=== PATIENT | female | born 1960 | race Caucasian/White ===

== ENCOUNTER 2016-12-18 20:07 | Emergency (ER) | payer MEDICARE, MEDICAID ==
--- NOTE | 2016-12-18 21:20 | ER Document Report ---
ED Medical Screen (RME) - General Stated Complaint: BACK PAIN Mode of Arrival: Wheelchair Information source: Patient Notes: Patient complains of low back pain that radiates down to left foot. Patient had fluoroscopy procedure in early October to treat her back pain. Patient states low back pain has worsened over the past 2 weeks. Patient states that she's been having increased pain and it causes her leg to buckle out from underneath her. Patient denies any urinary symptoms. Patient reports pain in the groin area as well. No injury hx: Hypothyroid, bowel obstruction, spinal fusion L L4-L5, L5-S1 I have greeted and performed a rapid initial assessment of this patient. A comprehensive ED assessment and evaluation of the patient, analysis of test results and completion of the medical decision making process will be conducted by additional ED providers. TRAVEL OUTSIDE OF THE [place] IN LAST 30 DAYS: No - Related Data Allergies/Adverse Reactions: No Known Allergies Allergy (Verified 07/03/16 12:09) Past Medical History Endocrine Medical History: Reports: Hx Hypothyroidism GI Medical History: Reports: Hx Gastroesophageal Reflux Disease Musculoskeltal Medical History: Reports Hx Arthritis, Reports Hx Musculoskeletal Deformity, Reports Hx Musculoskeletal Trauma Past Surgical History: Reports: Hx Appendectomy, Hx Bowel Surgery - Hx bowel obstruction, Hx Breast Surgery - Breast augmentation/ Breast reduction, Hx Section, Hx Hysterectomy, Hx Orthopedic Surgery - L & R rotator cuff. L & R foot dorsal repair - Immunizations Hx Diphtheria, Pertussis, Tetanus Vaccination: Yes Physical Exam - Vital signs Vitals: Resp 16 12/18/16 20:14 - Back Back: Tender - Left lower lumbar Course - Vital Signs Vital signs: Temp Pulse Resp BP Pulse Ox 98.3 F 16 12/18/16 20:17 12/18/16 20:14
== END 2016-12-19 01:40 | disposition left against medical advice (07) ==
LOC: ER 20:07
DX: M54.5 Low back pain (principal); R10.30 Lower abdominal pain, unspecified; Z98.1 Arthrodesis status; Z53.20 Procedure and treatment not carried out because of patient's decision for unspecified reasons
CPT/HCPCS: 99281

== ENCOUNTER 2017-04-24 21:20 | Emergency (ER) | payer MEDICARE, MEDICAID ==
[2017-04-24 22:12] LABS: ABSOLUTE LYMPHOCYTES (AUTO) 3.3 10^3/uL (0.5-4.7); ABSOLUTE MONOCYTES (AUTO) 0.7 10^3/uL (0.1-1.4); ABSOLUTE NEUT (AUTO) 4.4 10^3/uL (1.7-8.2); BASOPHILS % (AUTO) 0.4 % (0-2); EOSINOPHILS % (AUTO) 0.4 % (0-6); HEMATOCRIT 44.9 % (36.0-47.0); HEMOGLOBIN 14.8 g/dL (12.0-15.5); HGB HCT DIFFERENCE -0.5; MEAN CORPUSCULAR HEMOGLOBIN 28.9 pg (27.0-33.4); MEAN CORPUSCULAR HGB CONC 32.9 g/dL (32.0-36.0); MEAN CORPUSCULAR VOLUME 88 fl (80-97); MONOCYTES % (AUTO) 8.6 % (3-13); RED BLOOD COUNT 5.11 10^6/uL (3.72-5.28); RED CELL DISTRIBUTION WIDTH 12.6 % (11.5-14.0); SEGMENTED NEUTROPHILS % (AUTO) 51.6 % (42-78); WHITE BLOOD COUNT 8.5 10^3/uL (4.0-10.5)
[2017-04-24 22:22] LABS: ALANINE AMINOTRANSFERASE 27 U/L (9-52); ALBUMIN 4.1 g/dL (3.5-5.0); ALKALINE PHOSPHATASE 88 U/L (38-126); ANION GAP 13 (5-19); ASPARTATE AMINO TRANSFERASE 18 U/L (14-36); BILIRUBIN,DIRECT 0.3 mg/dL (0.0-0.4); BILIRUBIN,TOTAL 0.3 mg/dL (0.2-1.3); BLOOD UREA NITROGEN 13 mg/dL (7-20); CALCIUM 8.9 mg/dL (8.4-10.2); CARBON DIOXIDE 20 mmol/L (22-30); CHLORIDE 108 mmol/L (98-107); CREATININE RESULT 0.72 mg/dL (0.52-1.25); GLUCOSE 107 mg/dL (75-110); TOTAL PROTEIN 7.2 g/dL (6.3-8.2)
--- NOTE | 2017-04-24 22:52 | ER Document Report ---
ED GI/ - General Chief Complaint: Post Surgical Pain Stated Complaint: BLEEDING FROM SURGICAL SITE Time Seen by Provider: 04/24/17 22:13 Mode of Arrival: Ambulatory Information source: Patient Notes: 57 yo female presents to ed for rectal bleeding from a hemorrhoidectomy on Thursday. TRAVEL OUTSIDE OF THE [place] IN LAST 30 DAYS: No - HPI Patient complains to provider of: Other - bleeding from site of hemorrhoidectomy Onset: Other - thursday Timing/Duration: Persistent Quality of pain: Burning Severity at maximum: Severe Severity in ED: Moderate Pain Level: 2 Location: Rectal Vaginal bleeding (Compared to normal period): None Associated symptoms: Other - bleeding from site of hemorroidectomy. Exacerbated by: Denies Relieved by: Denies Similar symptoms previously: Yes Recently seen / treated by doctor: Yes - Related Data Allergies/Adverse Reactions: No Known Allergies Allergy (Verified 12/18/16 21:17) Past Medical History - General Information source: Patient - Social History Smoking Status: Former Smoker Cigarette use (# per day): No Chew tobacco use (# tins/day): No Smoking Education Provided: No Frequency of alcohol use: Social Drug Abuse: None Lives with: Alone Family History: Reviewed & Not Pertinent, Arthritis, CAD, COPD, CVA, Hyperlipidemia, Hypertension, Malignancy Patient has suicidal ideation: No Patient has homicidal ideation: No - Past Medical History Cardiac Medical History: Reports: None Pulmonary Medical History: Reports: None EENT Medical History: Reports: None Neurological Medical History: Reports: None Endocrine Medical History: Reports: Hx Hypothyroidism Renal/ Medical History: Reports: None Malignancy Medical History: Reports: None GI Medical History: Reports: Hx Gastroesophageal Reflux Disease Musculoskeltal Medical History: Reports Hx Arthritis, Reports Hx Musculoskeletal Deformity, Reports Hx Musculoskeletal Trauma Skin Medical History: Reports None Psychiatric Medical History: Reports: Hx Anxiety, Hx Depression, Hx Post Traumatic Stress Disorder Traumatic Medical History: Reports: Hx Fractures, Hx Spine Fracture, Hx Traumatic Brain Injury Infectious Medical History: Reports: None Past Surgical History: Reports: Hx Appendectomy, Hx Bowel Surgery - Hx bowel obstruction, Hx Breast Surgery - Breast augmentation/ Breast reduction, Hx Section, Hx Hysterectomy, Hx Orthopedic Surgery - L & R rotator cuff. L & R foot dorsal repair - Immunizations Hx Diphtheria, Pertussis, Tetanus Vaccination: Yes Hx Pneumococcal Vaccination: 05/29/14 Review of Systems - Review of Systems Constitutional: No symptoms reported EENT: No symptoms reported Cardiovascular: No symptoms reported Respiratory: No symptoms reported Gastrointestinal: Other - bleeding from hemorrhoidectomy done thursday Genitourinary: No symptoms reported Female Genitourinary: No symptoms reported Musculoskeletal: No symptoms reported Skin: No symptoms reported Hematologic/Lymphatic: No symptoms reported Neurological/Psychological: No symptoms reported -: Yes All other systems reviewed and negative Physical Exam - Vital signs Vitals: Temp Pulse Resp BP Pulse Ox 98.7 F 93 18 120/70 98 04/24/17 21:26 04/24/17 21:26 04/24/17 21:26 04/24/17 21:26 04/24/17 21:26 Interpretation: Normal - General General appearance: Appears well, Alert - HEENT Head: Normocephalic, Atraumatic Eyes: Normal Pupils: PERRL - Respiratory Respiratory status: No respiratory distress Chest status: Nontender Breath sounds: Normal Chest palpation: Normal - Cardiovascular Rhythm: Regular Heart sounds: Normal auscultation Murmur: No - Abdominal Inspection: Normal Distension: No distension Bowel sounds: Normal Tenderness: Nontender Organomegaly: No organomegaly - Rectal Tenderness: Yes Notes: There is no bleeding from hemorrhoidectomy site at this time. There is no signs of infection or inflammation. - Back Back: Normal, Nontender - Extremities General upper extremity: Normal inspection, Nontender, Normal color, Normal ROM , Normal temperature General lower extremity: Normal inspection, Nontender, Normal color, Normal ROM , Normal temperature, Normal weight bearing. No: Gabby's sign - Neurological Neuro grossly intact: Yes Cognition: Normal Orientation: AAOx4 Catlin Coma Scale Eye Opening: Spontaneous Catlin Coma Scale Verbal: Oriented Mariah Coma Scale Motor: Obeys Commands Mariah Coma Scale Total: 15 Speech: Normal Motor strength normal: LUE, RUE, LLE, RLE Sensory: Normal - Psychological Associated symptoms: Normal affect, Normal mood - Skin Skin Temperature: Warm Skin Moisture: Dry Skin Color: Normal Course - Vital Signs Vital signs: Temp Pulse Resp BP Pulse Ox 98.6 F 90 18 126/84 H 98 04/24/17 22:49 04/24/17 22:49 04/24/17 22:49 04/24/17 22:49 04/24/17 22:49 - Laboratory Result Diagrams: 04/24/17 21:40 04/24/17 21:40 Laboratory results interpreted by me: 04/24/17 21:40 Chloride 108 H Carbon Dioxide 20 L Discharge - Discharge Clinical Impression: post op concern hemorrhoidectomy, no bleeding at this time Condition: Stable Disposition: HOME, SELF-CARE Additional Instructions: Hemorrhoids You have hemorrhoids. These are formed by enlargement of veins around the anus. The cause is increased pressure in the veins, from or straining at bowel movements. Hemorrhoids often cause itching and bleeding with bowel movements. When a hemorrhoid becomes clotted, severe pain and swelling result. Warm sitz-baths may also decrease pain, swelling, and itching. Eat a high- fiber diet. Stool softeners such as Metamucil will help. Keep the area very clean. Medicated cleansing pads (such as Tucks) are useful after bowel movements. A hose-mounted shower unit (like a shower massager at low water pressure) can be used to clean around tender hemorrhoid tags. You should call the doctor or return if you develop fever, increasing pain , or an enlarging mass around the anus, or if you simply fail to improve with treatment. Epsom Salt Soaks Soak the wound area in a container of warm epsom salt water. If you can't get the wound area into a bucket or alvarado, use a folded towel soaked in the epsom salt solution and apply to the area. Use clean hot tap water (about the temperature of a very warm bath), mixing in about one (1) teaspoon for every pint of water. Two gallon --> 16 teaspoons Epsom Salts One gallon --> 8 teaspoons Epsom Salts Two quarts --> 4 teaspoons Epsom Salts One quart --> 2 teaspoons Epsom Salts Soak the wound for about 20 minutes while gently moving it around in the water. Repeat this four (4) times a day. FOLLOW-UP CARE: If you have been referred to a physician for follow-up care, call the physician s office for an appointment as you were instructed or within the next two days. If you experience worsening or a significant change in your symptoms, notify the physician immediately or return to the Emergency Department at any time for re-evaluation. Referrals: LUANN PINTO MD [Primary Care Provider] - Follow up as needed
[2017-04-24 22:59] VITALS: BP 126/84
== END 2017-04-24 22:49 | disposition home or self-care (01) ==
LOC: ER 21:20
DX: Z48.815 Encounter for surgical aftercare following surgery on the digestive system (principal); Z87.891 Personal history of nicotine dependence
CPT/HCPCS: 36415; 80053; 85025; 99283

== ENCOUNTER 2017-10-26 07:06 | Emergency (ER) | payer MEDICARE, MEDICAID ==
[2017-10-26] MEDS ORDERED: ACETAMINOPHEN 325 MG TABLET PO ONE (08:06)
--- NOTE | 2017-10-26 08:10 | ER Document Report ---
ED Flu Like - General Chief Complaint: Flu Symptoms Stated Complaint: FLU SYMPTOMS Mode of Arrival: Ambulatory TRAVEL OUTSIDE OF THE [place] IN LAST 30 DAYS: No - HPI Notes: 57-year-old female with history of septal deviation and sinusitis presents today with complaints of fever, myalgias, acute left maxillary, sore throat, headache, dry cough, vomiting from coughing 4 days. Patient did get flu shot. Fevers high as 102. Patient is taking [id number] ibuprofen and Tylenol with some relief. Denies any abdominal pain, diarrhea, pelvic or vaginal pain. Denies any dizziness, blurred vision, double vision, loss of vision. Decreased eating but is drinking okay. Denies any rashes. It is myalgias occur intermittently when she has not taken an antibiotic. reports teeth pain. - Related Data Allergies/Adverse Reactions: No Known Allergies Allergy (Verified 10/26/17 07:07) Past Medical History - General Information source: Patient - Social History Smoking Status: Never Smoker Chew tobacco use (# tins/day): No Drug Abuse: None Family History: Reviewed & Not Pertinent, Arthritis, CAD, COPD, CVA, Hyperlipidemia, Hypertension, Malignancy Patient has suicidal ideation: No Patient has homicidal ideation: No Endocrine Medical History: Reports: Hx Hypothyroidism Renal/ Medical History: Denies: Hx Peritoneal Dialysis GI Medical History: Reports: Hx Gastroesophageal Reflux Disease Musculoskeltal Medical History: Reports Hx Arthritis, Reports Hx Musculoskeletal Deformity, Reports Hx Musculoskeletal Trauma Psychiatric Medical History: Reports: Hx Anxiety, Hx Depression, Hx Post Traumatic Stress Disorder Traumatic Medical History: Reports: Hx Fractures, Hx Spine Fracture, Hx Traumatic Brain Injury Past Surgical History: Reports: Hx Appendectomy, Hx Bowel Surgery - Hx bowel obstruction, Hx Breast Surgery - Breast augmentation/ Breast reduction, Hx Section, Hx Hysterectomy, Hx Orthopedic Surgery - L & R rotator cuff. L & R foot dorsal repair - Immunizations Hx Diphtheria, Pertussis, Tetanus Vaccination: Yes Hx Pneumococcal Vaccination: 05/29/14 Review of Systems - Review of Systems Constitutional: See HPI EENT: See HPI Cardiovascular: No symptoms reported Respiratory: Cough Gastrointestinal: No symptoms reported Genitourinary: No symptoms reported Female Genitourinary: No symptoms reported Musculoskeletal: No symptoms reported Skin: No symptoms reported Hematologic/Lymphatic: No symptoms reported Neurological/Psychological: No symptoms reported Physical Exam - Vital signs Vitals: Temp Pulse Resp BP Pulse Ox 100.5 F H 111 H 18 136/68 H 97 10/26/17 07:12 10/26/17 07:12 10/26/17 07:12 10/26/17 07:12 10/26/17 07:12 Interpretation: Normal, Tachycardic - Notes Notes: PHYSICAL EXAMINATION: GENERAL: Well-appearing, well-nourished and in no acute distress. HEAD: Atraumatic, normocephalic. EYES: Pupils equal round and reactive to light, extraocular movements intact, conjunctiva are normal. ENT:noted nasal congestion and rhinorrhea. TM with serous effusion, no erythema. Throat with out exudates. No lymphadenopathy noted. sinus transillumination on right. No swelling no erythema no exudate no angioedema no drooling no trismus bilateral arches equal. Uvula midline. NECK: Normal range of motion, supple without lymphadenopathy LUNGS: Breath sounds clear to auscultation bilaterally and equal. No wheezes rales or rhonchi. HEART: Regular rate and rhythm without murmurs ABDOMEN: Soft, nontender, nondistended abdomen. No guarding, no rebound. No masses appreciated. Female : deferred Musculoskeletal: Normal range of motion, no pitting or edema. No cyanosis. NEUROLOGICAL: Cranial nerves grossly intact. Normal speech, normal gait. Normal sensory, motor exams PSYCH: Normal mood, normal affect. SKIN: Warm, Dry, normal turgor, no rashes or lesions noted. Course - Re-evaluation Re-evalutation: 10/26/17 09:05 On reevaluation, patient appears better. Informed her that her flu, strep test were negative. Patient is outside of the treatment window for Tamiflu since she has been having these symptoms for 4 days. Will treat for acute bacterial sinusitis. Advised to increase oral fluids, take [id number] ibuprofen and Tylenol as needed for any fevers or pain. Follow-up with PCP within 1-2 days. Symptoms can worse go to the emergency room. Patient verbalized understanding plan of care and agree with plan of care. Patient was discharged home. After performing a Medical Screening Examination, I estimate there is LOW risk for ACUTE CORONARY SYNDROME, PULMONARY EMBOLI, RESPIRATORY FAILURE, SEPSIS OR MENINGITIS, thus I consider the discharge disposition reasonable. I have reevaluated this patient multiple times and no significant life threatening changes are noted. The patient and I have discussed the diagnosis and risks, and we agree with discharging home with close follow-up. We also discussed returning to the Emergency Department immediately if new or worsening symptoms occur. We have discussed the symptoms which are most concerning (e.g., changing or worsening pain, trouble swallowing or breathing, neck stiffness, fever) that necessitate immediate return. 10/26/17 09:06 - Vital Signs Vital signs: Temp Pulse Resp BP Pulse Ox 100.5 F H 111 H 18 136/68 H 97 10/26/17 07:12 10/26/17 07:12 10/26/17 07:12 10/26/17 07:12 10/26/17 07:12 Discharge - Discharge Clinical Impression: Acute bacterial sinusitis Condition: Good Disposition: HOME, SELF-CARE Instructions: Fever ([facility]), Sinusitis ([facility]) Additional Instructions: Sinusitis You have sinusitis, an infection of the sinus cavities of the face. The sinuses are air-filled chambers which open into the inside of the nose. Bacteria and pus fill a sinus, causing pain, drainage, and fever. Sinusitis is treated with antibiotics. Often, expectorants (to thin the sinus mucous) or decongestants (to reduce swelling) are prescribed as well. Healing requires seven to 10 days. Avoid chemical fumes, pollens, dusts, and smoke (especially cigarette smoke ). Keep the air humidified in your bedroom and work area and take plenty of liquids by mouth. This condition can be serious if the infection spreads. If your symptoms worsen, or if you develop severe headache, high fever, stiff neck, or a rash, you must call the doctor or return for re-evaluation. Take antibiotics with food, increase oral fluids. He is Ventolin inhaler as needed for postnasal drip cough. Take Zofran as needed for nausea. Follow-up with PCP within 24 hours. Nausea or Vomiting, Nonspecific Vomiting (or nausea without vomiting) can be caused by many different problems. Of course, it can mean that something's wrong with the stomach, such as "stomach flu," ulcers, or inflammation. But it can also be a symptom of a problem that has nothing to do with the stomach or intestines. Vomiting is common with severe headaches, earaches, and tonsillitis. We see it with pneumonia or heart attacks. Drugs can cause nausea. Many abdominal problems cause vomiting; for example, gallstones, kidney stones, pancreatitis, and intestinal obstruction (blocked bowels). In most cases, curing the vomiting depends on fixing the problem that caused it. For temporary relief, we may use an anti-nausea medicine. For home use, we can prescribe suppositories, chewable pills, pills that dissolve in the mouth, or liquid anti-nausea drugs. If the vomiting seems to be caused by a problem in the stomach, acid-suppressing drugs may be prescribed as well. It's important to avoid dehydration. Sip clear liquids. Take increasing amounts of fluid over the first 24 hours. Then start small amounts of bland foods (such as dry toast, applesauce, mashed potato). Avoid aspirin, tobacco, and alcohol. Gradually resume your usual diet. If the vomiting worsens, if the problem that's making you vomit worsens, or if there's evidence of bleeding in the stomach (such as black, tarry stool, bloody or black vomit, or lightheadedness), you should return immediately. Call your doctor if you aren't improved in 24 to 36 hours. Return immediately for any new or worsening symptoms. Follow up with primary care provider, call tomorrow to make followup appointment. Prescriptions: Albuterol Sulfate [Ventolin Hfa] 1 - 2 puff IH Q4 PRN #1 [id number] PRN Reason: Amox Tr/Potassium Clavulanate [Augmentin 875-125 mg Tablet] 1 tab PO BID #20 tablet
[2017-10-26 08:45] LABS: A TYPE INFLUENZA AG NEGATIVE (NEGATIVE); B INFLUENZA AG NEGATIVE (NEGATIVE)
[2017-10-26 09:36] VITALS: BP 122/79
== END 2017-10-26 09:35 | disposition home or self-care (01) ==
LOC: ER 07:06
DX: J01.90 Acute sinusitis, unspecified (principal); B96.89 Other specified bacterial agents as the cause of diseases classified elsewhere; R50.9 Fever, unspecified; M79.1 Myalgia; J02.9 Acute pharyngitis, unspecified; R51 Headache; R05 Cough; R11.10 Vomiting, unspecified; K08.89 Other specified disorders of teeth and supporting structures; R09.81 Nasal congestion; J34.89 Other specified disorders of nose and nasal sinuses
CPT/HCPCS: 99283; 87070; 87880; 87804; A9270

== ENCOUNTER 2018-02-01 10:19 | Emergency (ER) | payer MEDICARE, MEDICAID ==
[2018-02-01 10:55] LABS: APPEARANCE,URINE SLIGHTLY-CLOUDY; BILIRUBIN,URINE NEGATIVE (NEGATIVE); COLOR,URINE YELLOW; GLUCOSE, URINE NEGATIVE (NEGATIVE); KETONES,URINE NEGATIVE (NEGATIVE); LEUKOCYTE ESTERASE,URINE MODERATE (NEGATIVE); NITRITE,URINE NEGATIVE (NEGATIVE); PROTEIN,URINE NEGATIVE (NEGATIVE); URINE SPECIFIC GRAVITY 1.014; UROBILINOGEN,URINE NEGATIVE mg/dL (<2.0)
[2018-02-01] MEDS ORDERED: ASPIRIN 81 MG TABLET, CHEWABLE PO ONE ×2 (10:55→11:56)
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
[2018-02-01 11:55] LABS: ABSOLUTE LYMPHOCYTES (AUTO) 2.6 10^3/uL (0.5-4.7); ABSOLUTE MONOCYTES (AUTO) 0.5 10^3/uL (0.1-1.4); ABSOLUTE NEUT (AUTO) 5.8 10^3/uL (1.7-8.2); BASOPHILS % (AUTO) 0.3 % (0-2); EOSINOPHILS % (AUTO) 0.3 % (0-6); HEMATOCRIT 43.8 % (36.0-47.0); LYMPHOCYTES % (AUTO) 29.1 % (13-45); MEAN CORPUSCULAR HEMOGLOBIN 29.5 pg (27.0-33.4); MEAN CORPUSCULAR HGB CONC 34.2 g/dL (32.0-36.0); MEAN CORPUSCULAR VOLUME 86 fl (80-97); MONOCYTES % (AUTO) 5.5 % (3-13); PLATELET COUNT 323 10^3/uL (150-450); RED BLOOD COUNT 5.08 10^6/uL (3.72-5.28); RED CELL DISTRIBUTION WIDTH 13.2 % (11.5-14.0); SEGMENTED NEUTROPHILS % (AUTO) 64.8 % (42-78); TOTAL CELLS COUNTED % (AUTO) 100 %; WHITE BLOOD COUNT 8.9 10^3/uL (4.0-10.5)
[2018-02-01 12:08] LABS: ALANINE AMINOTRANSFERASE 20 U/L (9-52); ALBUMIN 4.7 g/dL (3.5-5.0); ALKALINE PHOSPHATASE 63 U/L (38-126); ANION GAP 15 (5-19); ASPARTATE AMINO TRANSFERASE 18 U/L (14-36); BILIRUBIN,DIRECT 0.1 mg/dL (0.0-0.4); BILIRUBIN,TOTAL 0.1 mg/dL (0.2-1.3); BLOOD UREA NITROGEN 20 mg/dL (7-20); CALCIUM 10.5 mg/dL (8.4-10.2); CARBON DIOXIDE 31 mmol/L (22-30); CHLORIDE 96 mmol/L (98-107); CREATINE KINASE 27 U/L (30-135); GLUCOSE 100 mg/dL (75-110); POTASSIUM 4.4 mmol/L (3.6-5.0); SODIUM 141.7 mmol/L (137-145); TOTAL PROTEIN 7.7 g/dL (6.3-8.2)
[2018-02-01 12:31] LABS: CREATINE KINASE MB 0.41 ng/mL (<4.55)
[2018-02-01 12:33] LABS: TROPONIN I < 0.012 ng/mL
--- NOTE | 2018-02-01 14:10 | EKG REPORT ---
SEVERITY:- NORMAL ECG - SINUS RHYTHM : Confirmed by: Porter Santiago MD 01-Feb-2018 14:09:29
[2018-02-01] MEDS ORDERED: ALPRAZOLAM 0.25 MG TABLET PO ONE (14:19)
[2018-02-01 17:41] VITALS: BP 116/86
--- NOTE | 2018-02-02 15:14 | RADIOLOGY REPORT (SQ) ---
EXAM DESCRIPTION: CHEST SINGLE VIEW COMPLETED DATE/TIME: 02/01/2018 11:09 am REASON FOR STUDY: palpitations COMPARISON: 12/21/2015 EXAM PARAMETERS: NUMBER OF VIEWS: One view TECHNIQUE: Single frontal radiograph of the chest. RADIATION DOSE: N/A LIMITATIONS: None. FINDINGS: LUNGS AND PLEURA: No opacities, masses or pneumothorax. No pleural effusion. MEDIASTINUM AND HILAR STRUCTURES: No masses. No contour abnormality. HEART AND VASCULAR STRUCTURES: Heart size normal. Vascularity normal. HARDWARE: None BONES: No acute findings. OTHER: No other significant finding. IMPRESSION: NO ACUTE RADIOGRAPHIC FINDING IN THE CHEST. TECHNICAL DOCUMENTATION: JOB ID: [id number] [employer]- All Rights Reserved Reading location - IP/workstation name: [email or web address]
== END 2018-02-01 18:19 | disposition home or self-care (01) ==
LOC: ER 10:19
DX: R09.89 Other specified symptoms and signs involving the circulatory and respiratory systems (principal); R07.89 Other chest pain; G43.909 Migraine, unspecified, not intractable, without status migrainosus; R42 Dizziness and giddiness; R00.2 Palpitations; F32.9 Major depressive disorder, single episode, unspecified; F41.9 Anxiety disorder, unspecified; E03.9 Hypothyroidism, unspecified; M19.90 Unspecified osteoarthritis, unspecified site; Z79.899 Other long term (current) drug therapy; Z79.891 Long term (current) use of opiate analgesic; Z85.41 Personal history of malignant neoplasm of cervix uteri
CPT/HCPCS: 93005; 99284; 36415; 82553; 82550; 85025; 80053; 81001; 84484; 71045; 93010; A9270 ×2

== ENCOUNTER → 2018-05-13 | Outpatient (CLI) | payer MEDICARE, MEDICAID ==
--- NOTE | 2018-05-17 16:03 | RADIOLOGY REPORT (SQ) ---
EXAM DESCRIPTION: MRI BREAST BILAT W AND/OR WO COMPLETED DATE/TIME: 05/13/2018 8:50 am REASON FOR STUDY: UNSPECIFIED LUMP IN BREAST (N63.0) N63.0 UNSPECIFIED LUMP IN UNSPECIFIED BREAST COMPARISON: Mammography. Ultrasound not available. PATHOLOGIC CORRELATION: None. CONTRAST TYPE AND DOSE: 20 mL Prohance. RENAL FUNCTION: GFR > 60. TECHNIQUE: MR imaging performed with a dedicated breast coil. Pre contrast T1 and T2 weighted images . Pre contrast and post contrast enhanced T1 weighted images with fat saturation. Subtraction images, 3D thick and thin MIPS, and kinetic analysis performed on an independent workstat ion. ([place] workstation) Magnet strength: 3.0 T LIMITATIONS: None. FINDINGS: BREAST DENSITY: b. There are scattered areas of fibroglandular density. BACKGROUND PARENCHYMAL ENHANCEMENT:Minimal. RIGHT BREAST: No enhancing or suspicious masses. No clumped, regional/segmental ductal enhancement. Sulci implant. Small keyhole present indicating small areas of intracapsular rupture. CHEST WALL: Normal tissue planes. No abnormal internal mammary nodes. AXILLA: Normal axillary and retro-pectoral nodes. LEFT BREAST:No enhancing or suspicious masses. No clumped, regional/segmental ductal enhancement. Keyhole spur present indicating small areas of intracapsular rupture. CHEST WALL: Normal tissue planes. No abnormal internal mammary nodes. AXILLA: Normal axillary and retro-pectoral nodes. OTHER:No identified liver, bone, or lung lesions. No other significant incidental findings. IMPRESSION: Bilateral silicon implants. Small areas of intracapsular rupture bilateral. No suspici ous lesions. BIRAD: RIGHT BREAST: 2 Benign findings. LEFT BREAST: 2 Benign findings. RECOMMENDATION: RECOMMENDED FOLLOW-UP: Based on clinical findings. TECHNICAL DOCUMENTATION: JOB ID: [id number] [email or web address]- All Rights Reserved Reading location - IP/workstation name: [email or web address]
== END ==
LOC: RAD 06:27
PROVIDERS: ATTEND Surgery
DX: N63.0 Unspecified lump in unspecified breast (principal)
CPT/HCPCS: 82565; A9576; C8906; 77059

== ENCOUNTER 2019-02-15 10:40 | Emergency (ER) | payer MEDICARE, MEDICAID ==
[2019-02-15] MEDS ORDERED: KETOROLAC TROMETHAMINE 60 MG/2 ML SDV IM ONE (11:55)
[2019-02-15] MEDS ORDERED: MORPHINE SULFATE 10 MG/ML INJ IM ONE ×2 (11:55→15:31)
--- NOTE | 2019-02-15 12:38 | RADIOLOGY REPORT (SQ) ---
EXAM DESCRIPTION: CT CERVICAL SPINE WITHOUT COMPLETED DATE/TIME: 02/15/2019 12:20 pm REASON FOR STUDY: fall, posterior L rib pain, neck pain COMPARISON: 06/04/2018. TECHNIQUE: Axial images acquired through the cervical spine without intravenous contrast. Images re viewed with lung, soft tissue and bone windows. Reconstructed coronal and sagittal MPR images review ed. Images stored on PACS. All CT scanners at this facility use dose modulation, iterative reconstruction, and/or weight based d osing when appropriate to reduce radiation dose to as low as reasonably achievable (ALARA). [facility]: Dose Right [facility]: CareDose [facility]: Dose Right [facility]: Teradose 4D [facility]: [employer] RADIATION DOSE: CT Rad equipment meets quality standard of care and radiation dose reduction techniq ues were employed. CTDIvol: 12.5 mGy. DLP: 247 mGy-cm. mGy. LIMITATIONS: None. FINDINGS: ALIGNMENT: Anatomic. MINERALIZATION: Normal. VERTEBRAL BODIES: No fractures or dislocation. DISCS: Extensive anterior disc fusion from C4 to C 7. Disc space narrowing with osteophytes at C3-C4 and C7-T1. FACETS, LATERAL MASSES, POSTERIOR ELEMENTS: No fractures. No dislocation. No acute findings. HARDWARE: Disc spacers and anterior hardware C4-C5, C5-C 6, and C6-C7. VISUALIZED RIBS: No fractures. LUNG APICES AND SOFT TISSUES: No significant or acute findings. OTHER: No other significant finding. IMPRESSION: STABLE SURGICAL CHANGES AND DEGENERATIVE DISC DISEASE. NO ACUTE FINDINGS. TECHNICAL DOCUMENTATION: JOB ID: [id number] Quality ID # [id number]: Final reports with documentation of one or more dose reduction techniques (e.g., Au tomated exposure control, adjustment of the mA and/or kV according to patient size, use of iterative reconstruction technique) 2010 [employer]- All Rights Reserved Reading location - IP/workstation name: [email or web address]
--- NOTE | 2019-02-15 12:41 | ER Document Report ---
HPI - HPI Time Seen by Provider: 02/15/19 11:46 Pain Level: 5 Notes: Patient is a 59-year-old female presenting to the emergency department chief complaint of fall injury. Patient reports she was walking down her wooden steps when she lost her footing and slipped down the last 4 steps. She states she landed onto her left side. She reports pain to her left posterior ribs and left flank. She also reports some left-sided neck pain, states she has a history of a cervical fusion. Patient denies striking her head, denies any loss of consciousness or vomiting. Patient does appear to be uncomfortable. - CONSTITUTIONAL Constitutional: DENIES: Fever, Chills - EENT EENT: DENIES: Sore Throat, Ear Pain, Eye problems - NEURO Neurology: DENIES: Headache, Weakness, Vision blurred, Dizzinesss / Vertigo - CARDIOVASCULAR Cardiovascular: DENIES: Chest pain - RESPIRATORY Respiratory: DENIES: Trouble Breathing, Coughing - GASTROINTESTINAL Gastrointestinal: DENIES: Abdominal Pain, Black / Bloody Stools - URINARY Urinary: DENIES: Dysuria, Urgency, Frequency - REPRODUCTIVE Reproductive: DENIES: : - MUSCULOSKELETAL Musculoskeletal: DENIES: Extremity pain Past Medical History - General Information source: Patient - Social History Smoking Status: Never Smoker Chew tobacco use (# tins/day): No Frequency of alcohol use: Occasional Drug Abuse: None Family History: Reviewed & Not Pertinent, Arthritis, CAD, COPD, CVA, Hyperlipidemia, Hypertension, Malignancy Patient has suicidal ideation: No Patient has homicidal ideation: No Endocrine Medical History: Reports: Hx Hypothyroidism Renal/ Medical History: Denies: Hx Peritoneal Dialysis GI Medical History: Reports: Hx Gastroesophageal Reflux Disease Musculoskeletal Medical History: Reports Hx Arthritis, Reports Hx Musculoskeletal Deformity, Reports Hx Musculoskeletal Trauma Psychiatric Medical History: Reports: Hx Anxiety, Hx Depression, Hx Post Traumatic Stress Disorder Traumatic Medical History: Reports: Hx Fractures, Hx Spine Fracture, Hx Trauma tic Brain Injury Past Surgical History: Reports: Hx Appendectomy, Hx Bowel Surgery - Hx bowel obstruction, Hx Breast Surgery - Breast augmentation/ Breast reduction, Hx Section, Hx Hysterectomy, Hx Orthopedic Surgery - L & R rotator cuff. L & R foot dorsal repair - Immunizations Immunizations up to date: Yes Hx Diphtheria, Pertussis, Tetanus Vaccination: Yes Hx Pneumococcal Vaccination: 05/29/14 Vertical Provider Document - CONSTITUTIONAL Notes: PHYSICAL EXAMINATION: GENERAL: Well-appearing, well-nourished and in no acute distress. HEAD: Atraumatic, normocephalic. EYES: Pupils equal round extraocular movements intact, conjunctiva are normal. ENT: Nares patent NECK: Normal range of motion LUNGS: No respiratory distress, lung sounds clear and equal bilaterally. Musculoskeletal: No obvious trauma noted, no ecchymosis or erythema noted. No crepitus or deformity with palpation to the ribs. NEUROLOGICAL: Normal speech. PSYCH: Normal mood, normal affect. SKIN: Warm, Dry, normal turgor, no rashes or lesions noted. - INFECTION CONTROL TRAVEL OUTSIDE OF THE [place] IN LAST 30 DAYS: No Course - Re-evaluation Re-evalutation: CT of the C-spine and rib x-rays are negative. This was discussed with the patient's. Likely rib contusion. Patient is very concerned requesting a CT of her abdomen as she states that she feels there is definitely something wrong just below the 10th rib. Patient understands the risks and benefits of radiation. CT the abdomen shows no acute findings. This was discussed with the patient. Patient remained stable, vital signs are within normal limits. Patient will be discharged home at this time. Copy of CT was provided to patient. Patient will follow-up with her primary care provider as discussed. - Vital Signs Vital signs: Temp Pulse Resp BP Pulse Ox 98.1 F 117 H 18 122/98 H 99 02/15/19 10:44 02/15/19 10:44 02/15/19 10:44 02/15/19 10:44 02/15/19 10:44 - Laboratory Result Diagrams: 02/15/19 13:50 Discharge - Discharge Clinical Impression: Rib contusion Qualifiers: Encounter type: initial encounter Laterality: left Qualified Code(s): S20.212A - Contusion of left front wall of thorax, initial encounter Condition: Stable Disposition: HOME, SELF-CARE Additional Instructions: Contusion Your injury has resulted in a contusion -- a crushing of the deep tissues. No injury to important structures was detected during the physician's exam. Contusions vary in the amount of pain they cause, and in the length of time required for healing. Typically, the area will become bruised, and will remain painful to touch for two or three weeks. However, most patients are back to working and playing within a few days. After the initial period of rest and cold-packs, your symptoms (together with the doctor's recommendations) will determine how rapidly you can get back to full activity. Usually this means "do what feels okay, but don't do things that hurt." If re-examination was recommended, it's important to follow up as instructed. Call the doctor or return any time if pain increases, if swelling b ecomes severe, if you develop numbness or weakness in an injured extremity, or if any other alarming symptoms occur. Rib Contusion You have been diagnosed as having bruised ribs. It will usually take a few weeks for these injured ribs to heal. You should cough or take a deep breath at least every hour or two to prevent lung complications. You should not engage in any strenuous physical activity until released by your physician. The usual rule is "if it hurts, don't do it." Return if you develop any of the following: (1) Fever or chills. (2) Persistent cough, coughing up blood, or shortness of breath. (3) Increasing pain. (4) Weakness, lightheadedness, or fainting. Ice Apply ice packs frequently against the painful area. Many different schedules are recommended, such as "20 minutes on, 20 minutes off" or "one hour ice, two hours rest." If you need to work, you may need to go longer between ice treatments. You should plan to have the area ice packed AT LEAST one-fourth of the time. The ice should be applied over the wrap, tape, or splint, or over a layer of cloth -- not directly against the skin. Some ice bags have a built-in cloth and can be put directly on the skin. Your injured part should be elevated as much as possible over the next 48 hours. Try to keep the injury above the level of the heart. Avoid use of the injured area. Elevation and rest will decrease the swelling. Ibuprofen Ibuprofen is an excellent, safe drug for pain control. In addition, it has potent antiinflammatory effects which are beneficial, especially in the treatment of injuries, arthritis, or tendonitis. It's best to take ibuprofen with food. Persons with ulcer disease or allergy to aspirin should notify their physician of this before taking ibuprofen. Take the medication exactly as prescribed. Don't take additional doses unless instructed to do so by your doctor. If you develop wheezing, shortness of breath, hives, faintness, stomach pain, vomiting, or dark black stools, return for re-evaluation at once. The x-rays were negative for any fracture or dislocation. Please take ibuprofen [id number] as directed to help with pain and inflammation. Use the narcotic pain medication for severe pain only. Use the incentive spirometer at least 10 times per hour while awake. Prescriptions: Hydrocodone Bit/Acetaminophen [Hydrocodon-Acetaminophen 5-325] 1 each PO Q4H #12 tablet Referrals: LUANN PINTO MD [Primary Care Provider] - Follow up as needed
--- NOTE | 2019-02-15 12:41 | RADIOLOGY REPORT (SQ) ---
EXAM DESCRIPTION: RIBS LEFT W/PA CHEST COMPLETED DATE/TIME: 02/15/2019 12:30 pm REASON FOR STUDY: fall, posterior L rib pain, neck pain COMPARISON: 02/01/2018. TECHNIQUE: Frontal view of the chest and additional views of the left ribs acquired. NUMBER OF VIEWS: Three view. LIMITATIONS: None. FINDINGS: FRONTAL CXR: No pneumothorax. No pleural effusion. No atelectasis or infiltrates. RIBS: No displaced rib fractures. No lytic or blastic bony lesions. OTHER: No other significant finding. IMPRESSION: NO PNEUMOTHORAX. NO DISPLACED RIB FRACTURES. COMMENT: SITE OF TRAUMA/COMPLAINT MARKED/STAMP COMPLETED: YES. TECHNICAL DOCUMENTATION: JOB ID: [id number] [employer] [employer] [facility]- All Rights Reserved Reading location - IP/workstation name: [email or web address]
[2019-02-15 14:29] LABS: ANION GAP 12 (5-19); BLOOD UREA NITROGEN 12 mg/dL (7-20); CALCIUM 9.4 mg/dL (8.4-10.2); CARBON DIOXIDE 30 mmol/L (22-30); CHLORIDE 97 mmol/L (98-107); GLUCOSE 128 mg/dL (75-110); POTASSIUM 5.1 mmol/L (3.6-5.0); SODIUM 138.7 mmol/L (137-145)
--- NOTE | 2019-02-15 15:14 | RADIOLOGY REPORT (SQ) ---
EXAM DESCRIPTION: CT ABDOMEN IV CONTRAST ONLY COMPLETED DATE/TIME: 02/15/2019 2:53 pm REASON FOR STUDY: fall, pain inferior to 10th rib posteriorly COMPARISON: None. TECHNIQUE: CT scan of the abdomen performed with intravenous and without oral contrast using helical scanning technique with dynamic intravenous contrast injection. Images reviewed with lung, soft tiss ue, and bone windows. Reconstructed coronal and sagittal MPR images reviewed. Delayed images for eval uation of the urinary system also acquired and evaluated. All images stored on PACS. All CT scanners at this facility use dose modulation, iterative reconstruc tion, and/or weight based dosing when appropriate to reduce radiation dose to as low as reasonably ac hievable (ALARA). [facility]: Dose Right [facility]: CareDose [facility]: Dose Right [facility]: Teradose 4D [facility]: [employer] CONTRAST TYPE AND DOSE: contrast/concentration: Isovue 350.00 mg/ml; Total Contrast Delivered: 64.0 ml; Total Saline Delivered: 65.0 ml RENAL FUNCTION: BUN 12 creatinine 0.62 RADIATION DOSE: CT Rad equipment meets quality standard of care and radiation dose reduction techniq ues were employed. CTDIvol: 4.9 - 6.0 mGy. DLP: 312 mGy-cm. . LIMITATIONS: None. FINDINGS: LOWER CHEST: No significant findings. No nodules or infiltrates. LIVER: Normal size. No masses. No dilated ducts. SPLEEN: Normal size. No focal lesions. PANCREAS: No masses. No significant calcifications. No adjacent inflammation or peripancreatic fluid collections. Pancreatic duct not dilated. GALLBLADDER: No identified stones by CT criteria. No inflammatory changes to suggest cholecystitis. ADRENAL GLANDS: No significant masses or asymmetry. RIGHT KIDNEY AND URETER: No solid masses. No significant calcifications. No hydronephrosis or hyd roureter. LEFT KIDNEY AND URETER: No solid masses. No significant calcifications. No hydronephrosis or hydr oureter. AORTA AND VESSELS: No aneurysm. No dissection. Renal arteries, SMA, celiac without stenosis. RETROPERITONEUM: No retroperitoneal adenopathy, hemorrhage or masses. BOWEL AND PERITONEAL CAVITY: There is considerable retained stool. No obvious bowel masses. APPENDIX: Not included. ABDOMINAL WALL: No masses. No hernias. BONES: No fractures. There is hardware in the lower lumbar spine. OTHER: No other significant finding. IMPRESSION: Constipation. No acute findings in the abdomen. TECHNICAL DOCUMENTATION: JOB ID: [id number] Quality ID # [id number]: Final reports with documentation of one or more dose reduction techniques (e.g., Au tomated exposure control, adjustment of the mA and/or kV according to patient size, use of iterative reconstruction technique) 2010 [employer]- All Rights Reserved Reading location - IP/workstation name: [email or web address]
[2019-02-15 15:47] VITALS: BP 107/63
== END 2019-02-15 15:49 | disposition home or self-care (01) ==
LOC: ER 10:40
DX: S20.212A Contusion of left front wall of thorax, initial encounter (principal); R10.9 Unspecified abdominal pain; M54.2 Cervicalgia; W10.8XXA Fall (on) (from) other stairs and steps, initial encounter; Z98.1 Arthrodesis status; Z90.710 Acquired absence of both cervix and uterus
CPT/HCPCS: 99284; 96372; 36415; 80048; 71101; 72125; 74160; J1885; J2270

== ENCOUNTER → 2019-04-22 | Outpatient (CLI) | payer MEDICARE, MEDICAID ==
[2019-04-22 10:51] LABS: FREE T4 (FREE THYROXINE) 0.43 ng/dL (0.78-2.19)
[2019-04-22 11:04] LABS: THYROID STIMULATING HORMONE 8.41 uIU/mL (0.47-4.68)
--- NOTE | 2019-04-22 11:08 | RADIOLOGY REPORT (SQ) ---
EXAM DESCRIPTION: ABDOMEN 2 VIEWS COMPLETED DATE/TIME: 04/22/2019 10:55 am REASON FOR STUDY: CHRONIC IDIOPATHIC CONSTIPATION (K59.04) E03.9 HYPOTHYROIDISM, UNSPECIFIED COMPARISON: CT dated 02/15/2019 NUMBER OF VIEWS: Two views. TECHNIQUE: Supine and erect/decubitus radiographic images of the abdomen acquired. LIMITATIONS: None. FINDINGS: FREE AIR: None. No abnormal gas collections. LUNG BASES: Clear. BOWEL GAS PATTERN: Gas pattern is nonobstructive. There is high attenuation material in the colon. There is large amount of stool most marked on the right. No free air or mechanical obstruction. CALCIFICATIONS: No suspicious calcifications. SOFT TISSUES: No gross mass or suggestion of organomegaly. HARDWARE: None in the abdomen. BONES: No acute fracture. No worrisome bone lesions. OTHER: No other significant finding. IMPRESSION: Constipation. No other significant findings. TECHNICAL DOCUMENTATION: JOB ID: [id number] [employer]- All Rights Reserved Reading location - IP/workstation name: [email or web address]
== END ==
LOC: OD 08:27
PROVIDERS: ATTEND Internal Medicine Geriatric Medicine
DX: K59.04 Chronic idiopathic constipation (principal); E03.9 Hypothyroidism, unspecified
CPT/HCPCS: 36415; 74019; 84439; 84443; 84482; 86376

== ENCOUNTER 2019-06-05 18:42 | Emergency (ER) | payer MEDICARE, MEDICAID ==
--- NOTE | 2019-06-05 19:46 | ER Document Report ---
ED Medical Screen (RME) - General Chief Complaint: Abdominal Pain Stated Complaint: ABDOMINAL PAIN Time Seen by Provider: 06/05/19 19:40 Primary Care Provider: LUANN PINTO MD [Primary Care Provider] - Follow up as needed Mode of Arrival: Ambulatory Information source: Patient Notes: 59-year-old female presents to ED for complaint of lower abdominal pain. She states she had no bowel movements for a week so Thursday she started her bowel regime when she got very distended and started with nausea and vomiting. She states her blood pressure was elevated. She states she started taking her bowel regime twice a day when she did not have a bowel movement. She had a large bowel movement on Thursday with multiple liquid bowel movement since then. She states she is only had one meal today. She is on tramadol. She states she had multiple bowel obstructions with strictures due to multiple abdominal surgeries. I have greeted and performed a rapid initial assessment of this patient. A comprehensive ED assessment and evaluation of the patient, analysis of test results and completion of medical decision making process will be conducted by an additional ED providers. TRAVEL OUTSIDE OF THE [place] IN LAST 30 DAYS: No - Related Data Allergies/Adverse Reactions: tizanidine Allergy (Verified 06/05/19 18:51) Past Medical History Endocrine Medical History: Reports: Hx Hypothyroidism Renal/ Medical History: Denies: Hx Peritoneal Dialysis GI Medical History: Reports: Hx Gastroesophageal Reflux Disease Musculoskeltal Medical History: Reports Hx Arthritis, Reports Hx Musculoskeletal Deformity, Reports Hx Musculoskeletal Trauma Psychiatric Medical History: Reports: Hx Anxiety, Hx Depression, Hx Post Traumatic Stress Disorder Traumatic Medical History: Reports: Hx Fractures, Hx Spine Fracture, Hx Traumatic Brain Injury Past Surgical History: Reports: Hx Appendectomy, Hx Bowel Surgery - Hx bowel obstruction, Hx Breast Surgery - Breast augmentation/ Breast reduction, Hx Section, Hx Hysterectomy, Hx Orthopedic Surgery - L & R rotator cuff. L & R foot dorsal repair - Immunizations Immunizations up to date: Yes Hx Diphtheria, Pertussis, Tetanus Vaccination: Yes Physical Exam - Vital signs Vitals: Temp Pulse Resp BP Pulse Ox 98.9 F 94 18 141/78 H 94 06/05/19 18:56 06/05/19 18:56 06/05/19 18:56 06/05/19 18:56 06/05/19 18:56 Course - Vital Signs Vital signs: Temp Pulse Resp BP Pulse Ox 98.9 F 94 18 141/78 H 94 06/05/19 18:56 06/05/19 18:56 06/05/19 18:56 06/05/19 18:56 06/05/19 18:56 Doctor's Discharge - Discharge Referrals: LUANN PINTO MD [Primary Care Provider] - Follow up as needed
[2019-06-05 20:45] LABS: ABSOLUTE EOSINOPHILS # (AUTO) 0.1 10^3/uL (0.0-0.6); ABSOLUTE LYMPHOCYTES (AUTO) 2.7 10^3/uL (0.5-4.7); ABSOLUTE MONOCYTES (AUTO) 0.8 10^3/uL (0.1-1.4); ABSOLUTE NEUT (AUTO) 5.4 10^3/uL (1.7-8.2); BASOPHILS % (AUTO) 0.4 % (0-2); EOSINOPHILS % (AUTO) 1.2 % (0-6); HEMOGLOBIN 12.8 g/dL (12.0-15.5); MEAN CORPUSCULAR HEMOGLOBIN 29.5 pg (27.0-33.4); MEAN CORPUSCULAR HGB CONC 33.8 g/dL (32.0-36.0); MEAN CORPUSCULAR VOLUME 87 fl (80-97); MONOCYTES % (AUTO) 8.5 % (3-13); PLATELET COUNT 297 10^3/uL (150-450); RED BLOOD COUNT 4.36 10^6/uL (3.72-5.28); RED CELL DISTRIBUTION WIDTH 13.7 % (11.5-14.0); SEGMENTED NEUTROPHILS % (AUTO) 59.9 % (42-78); TOTAL CELLS COUNTED % (AUTO) 100 %
[2019-06-05 21:00] LABS: APPEARANCE,URINE CLOUDY; BILIRUBIN,URINE NEGATIVE (NEGATIVE); COLOR,URINE YELLOW; GLUCOSE, URINE NEGATIVE (NEGATIVE); KETONES,URINE TRACE mg/dL (NEGATIVE); LEUKOCYTE ESTERASE,URINE LARGE (NEGATIVE); NITRITE,URINE NEGATIVE (NEGATIVE); PROTEIN,URINE 30 mg/dL (NEGATIVE); URINE SPECIFIC GRAVITY 1.025
[2019-06-05 21:08] LABS: ALBUMIN 4.3 g/dL (3.5-5.0); ALKALINE PHOSPHATASE 92 U/L (38-126); ANION GAP 9 (5-19); ASPARTATE AMINO TRANSFERASE 34 U/L (14-36); BILIRUBIN,DIRECT 0.1 mg/dL (0.0-0.4); BILIRUBIN,TOTAL 0.2 mg/dL (0.2-1.3); BLOOD UREA NITROGEN 11 mg/dL (7-20); CALCIUM 8.9 mg/dL (8.4-10.2); CARBON DIOXIDE 29 mmol/L (22-30); CHLORIDE 100 mmol/L (98-107); GLUCOSE 72 mg/dL (75-110); POTASSIUM 3.7 mmol/L (3.6-5.0); TOTAL PROTEIN 6.8 g/dL (6.3-8.2)
[2019-06-05] MEDS ORDERED: ONDANSETRON HCL INJ/PF 4 MG/2 ML SDV IV ONE (21:40)
[2019-06-05] MEDS ORDERED: NORMAL SALINE 1000 ML 1,000 ML IV ONE (21:40)
--- NOTE | 2019-06-05 23:26 | ER Document Report ---
Entered by LORI MACHADO SCRIBE 06/05/19 2138 Acting as scribe for:JER FERRER MD ED GI/ - General Chief Complaint: Abdominal Pain Stated Complaint: ABDOMINAL PAIN Time Seen by Provider: 06/05/19 19:40 Primary Care Provider: LUANN PINTO MD [Primary Care Provider] - Follow up as needed Mode of Arrival: Ambulatory Information source: Patient Notes: Patient is a 59-year-old female that presents to the emergency department today with complaints of abdominal distention with associated nausea and vomiting. Patient has had multiple small bowel obstructions in the past and she states her symptoms today are identical to her previous small bowel obstructions. Patient states that last night at 7 PM she "had bowel movements for 6 or 7 hours straight", but prior to that, she had not had a bowel movement in 8 or 9 days. Patient states her bowel movements were the consistency of a milkshake which is normal for her. Patient denies any fevers. TRAVEL OUTSIDE OF THE [place] IN LAST 30 DAYS: No - Related Data Allergies/Adverse Reactions: tizanidine Allergy (Verified 06/05/19 19:49) Past Medical History - General Information source: Patient - Social History Smoking Status: Never Smoker Cigarette use (# per day): No Frequency of alcohol use: Rare Drug Abuse: None Lives with: Family Family History: Reviewed & Not Pertinent, Arthritis, CAD, COPD, CVA, Hyperlipidemia, Hypertension, Malignancy Patient has suicidal ideation: No Patient has homicidal ideation: No Endocrine Medical History: Reports: Hx Hypothyroidism GI Medical History: Reports: Hx Gastroesophageal Reflux Disease Musculoskeletal Medical History: Reports Hx Arthritis, Reports Hx Musculoskeletal Deformity, Reports Hx Musculoskeletal Trauma Psychiatric Medical History: Reports: Hx Anxiety, Hx Depression, Hx Post Traumatic Stress Disorder Traumatic Medical History: Reports: Hx Fractures, Hx Spine Fracture, Hx Traumatic Brain Injury Past Surgical History: Reports: Hx Appendectomy, Hx Bowel Surgery - Hx small bowel obstruction, Hx Breast Surgery - Breast augmentation/ Breast reduction, Hx Section, Hx Hysterectomy, Hx Orthopedic Surgery - L & R rotator cuff. L & R foot dorsal repair. Lumbar fusion L4-S1 - Immunizations Immunizations up to date: Yes Hx Diphtheria, Pertussis, Tetanus Vaccination: Yes Hx Pneumococcal Vaccination: 05/29/14 Review of Systems - Review of Systems Constitutional: denies: Fever EENT: No symptoms reported Cardiovascular: No symptoms reported Respiratory: No symptoms reported Gastrointestinal: See HPI, Abdomen distended, Abdominal pain, Nausea, Vomiting Genitourinary: No symptoms reported Female Genitourinary: No symptoms reported Musculoskeletal: No symptoms reported Skin: No symptoms reported Hematologic/Lymphatic: No symptoms reported Neurological/Psychological: No symptoms reported -: Yes All other systems reviewed and negative Physical Exam - Vital signs Vitals: Temp Pulse Resp BP Pulse Ox 98.9 F 94 18 141/78 H 94 06/05/19 18:56 06/05/19 18:56 06/05/19 18:56 06/05/19 18:56 06/05/19 18:56 - Notes Notes: Physical Exam: General: Alert, appears well. HEENT: Normocephalic. Atraumatic. PERRL. Extraocular movements intact. Oropharynx clear. Neck: Supple. Non-tender. Respiratory: No respiratory distress. Clear and equal breath sounds bilaterally. Cardiovascular: Regular rate and rhythm. Abdominal: Upper abdomen is resonant to percuss, lower abdomen is dull to percuss. Right lower quadrant and left lower quadrant are firm with palpation with associated tenderness on palpation. Mild distension. Back: No gross abnormalities. Extremities: Moves all four extremities. Upper extremities: Normal inspection. Normal ROM. Lower extremities: Normal inspection. No edema. Normal ROM. Neurological: Normal cognition. AAOx4. Normal speech. Psychological: Normal affect. Normal Mood. Skin: Warm. Dry. Normal color. Course - Re-evaluation Re-evalutation: 06/06/19 02:21 The initial urinalysis suggested a urinary tract infection, however there was 32 epithelial cells. Repeat urinalysis done after hydration, does not appear to show a urinary tract infection. - Vital Signs Vital signs: Temp Pulse Resp BP Pulse Ox 98.9 F 94 18 141/78 H 94 06/05/19 18:56 06/05/19 18:56 06/05/19 18:56 06/05/19 18:56 06/05/19 18:56 - Laboratory Result Diagrams: 06/05/19 19:50 06/05/19 19:50 Laboratory results interpreted by me: 06/05/19 06/05/19 06/06/19 19:50 19:50 01:41 Glucose 72 L Urine Protein 30 H Urine Glucose (UA) 150 H Urine Ketones TRACE H Urine Urobilinogen 2.0 H Ur Leukocyte Esterase LARGE H TRACE H Urine Ascorbic Acid 40 H - Diagnostic Test Radiology reviewed: Image reviewed, Reports reviewed - Contrasted CT scan of the abdomen pelvis does not show obstruction. There does seem to be a lot of stool in the right colon and the pelvis. This would correspond to the areas that were percussion dull on initial physical exam. Discharge - Discharge Clinical Impression: Constipation, chronic Abdominal pain Qualifiers: Abdominal location: left lower quadrant Qualified Code(s): R10.32 - Left lower quadrant pain Condition: Stable Disposition: HOME, SELF-CARE Additional Instructions: Continue your medications that you take for constipation that includes your Linzess and MiraLAX. Drink plenty of fluids throughout the day and evening every day. Take the Reglan as prescribed for nausea if needed. Follow-up with your primary care provider or your sales office manager if you continue to have abdominal pain and difficulty with your bowel movements. RETURN TO THE EMERGENCY ROOM IF ANY NEW OR WORSENING SYMPTOMS. Prescriptions: Metoclopramide HCl [Reglan 10 mg Tablet] 1 tab PO ASDIR PRN #20 tablet PRN Reason: Referrals: LUANN PINTO MD [Primary Care Provider] - Follow up as needed Scribe Attestation: 06/05/19 22:22 I personally performed the services described in the documentation, reviewed and edited the documentation which was dictated to the scribe in my presence, and it accurately records my words and actions. I personally performed the services described in the documentation, reviewed and edited the documentation which was dictated to the scribe in my presence, and it accurately records my words and actions.
[2019-06-05] MEDS ORDERED: DEXTROSE 5%-LACTATED RINGERS 1,000 ML IV ONE (23:27)
[2019-06-05] MEDS ORDERED: MORPHINE SULFATE 10 MG/ML INJ IV ONE (23:27)
[2019-06-05] MEDS ORDERED: METOCLOPRAMIDE HCL INJ/PF 10 MG/2 ML SDV IV ONE (23:28)
[2019-06-05] MEDS ORDERED: KETOROLAC TROMETHAMINE INJ/PF 30 MG/1 ML SDV IV ONE (23:28)
--- NOTE | 2019-06-05 23:47 | RADIOLOGY REPORT (SQ) ---
EXAM DESCRIPTION: CT ABDOMEN PELVIS WITH IV CONTRAST COMPLETED DATE/TME: 06/05/2019 19:48 CLINICAL HISTORY: 59 years, Female, Abdominal pain COMPARISON: 02/15/2019 CT TECHNIQUE: 352 Images stored on PACS. All CT scanners at this facility use dose modulation, iterative reconstruction, and/or weight based dosing when appropriate to reduce radiation dose to as low as reasonably achievable (ALARA). [facility]: Dose Right [facility]: CareDose [facility]: Dose Right [facility]: Teradose 4D [facility]: [employer] LIMITATIONS: None. FINDINGS: The lung bases are unremarkable. Osseous structures are grossly intact. Bilateral breast implants. Tiny cyst or hemangioma in the anterior liver, unchanged. The spleen, adrenal glands, pancreas, kidneys are unremarkable. The gallbladder is present. No evidence for bowel obstruction. Post surgical changes of the lumbar spine. Surgical clips right lower quadrant. No free air or free fluid. Multiple phleboliths in the pelvis. Appendix not well seen, correlate with surgical history. IMPRESSION: No acute intra-abdominal/pelvic process. TECHNICAL DOCUMENTATION: Quality ID # [id number]: Final reports with documentation of one or more dose reduction techniques (e.g., Automated exposure control, adjustment of the mA and/or kV according to patient size, use of iterative reconstruction technique) copyright 2010 [email or web address] All Rights Reserved
[2019-06-06] MEDS ORDERED: MAGNESIUM CITRATE 296 ML BOTTLE PO ONE (02:04)
[2019-06-06 02:07] LABS: APPEARANCE,URINE CLEAR; BILIRUBIN,URINE NEGATIVE (NEGATIVE); COLOR,URINE STRAW; GLUCOSE, URINE 150 mg/dL (NEGATIVE); KETONES,URINE NEGATIVE (NEGATIVE); LEUKOCYTE ESTERASE,URINE TRACE (NEGATIVE); NITRITE,URINE NEGATIVE (NEGATIVE); PROTEIN,URINE NEGATIVE (NEGATIVE); URINE SPECIFIC GRAVITY 1.019; UROBILINOGEN,URINE NEGATIVE mg/dL (<2.0)
[2019-06-06 03:30] VITALS: BP 107/47
== END 2019-06-06 03:28 | disposition home or self-care (01) ==
LOC: ER 18:42
DX: K59.09 Other constipation (principal); R10.32 Left lower quadrant pain; R10.9 Unspecified abdominal pain; R14.0 Abdominal distension (gaseous); R11.2 Nausea with vomiting, unspecified
CPT/HCPCS: 99284; 96361; 96374; 96375; 36415; 83690; 85025; 80053; 81001; 74177; J3490; J1885; J2765; J2270; J2405; J7121; J7030

== ENCOUNTER → 2019-08-11 | Outpatient (CLI) | payer MEDICARE, MEDICAID ==
[2019-08-11 11:16] LABS: ABSOLUTE EOSINOPHILS # (AUTO) 0.1 10^3/uL (0.0-0.6); ABSOLUTE MONOCYTES (AUTO) 0.5 10^3/uL (0.1-1.4); ABSOLUTE NEUT (AUTO) 4.9 10^3/uL (1.7-8.2); BASOPHILS % (AUTO) 0.3 % (0-2); EOSINOPHILS % (AUTO) 1.1 % (0-6); HEMATOCRIT 43.6 % (36.0-47.0); HEMOGLOBIN 14.5 g/dL (12.0-15.5); LYMPHOCYTES % (AUTO) 26.5 % (13-45); MEAN CORPUSCULAR HEMOGLOBIN 29.4 pg (27.0-33.4); MEAN CORPUSCULAR HGB CONC 33.2 g/dL (32.0-36.0); MEAN CORPUSCULAR VOLUME 89 fl (80-97); MONOCYTES % (AUTO) 6.4 % (3-13); PLATELET COUNT 219 10^3/uL (150-450); RED BLOOD COUNT 4.92 10^6/uL (3.72-5.28); RED CELL DISTRIBUTION WIDTH 13.2 % (11.5-14.0); SEGMENTED NEUTROPHILS % (AUTO) 65.7 % (42-78); TOTAL CELLS COUNTED % (AUTO) 100 %; WHITE BLOOD COUNT 7.4 10^3/uL (4.0-10.5)
[2019-08-11 11:36] LABS: ALBUMIN 4.7 g/dL (3.5-5.0); ALKALINE PHOSPHATASE 79 U/L (38-126); ANION GAP 11 (5-19); ASPARTATE AMINO TRANSFERASE 32 U/L (14-36); BILIRUBIN,DIRECT 0.2 mg/dL (0.0-0.4); BILIRUBIN,TOTAL 0.4 mg/dL (0.2-1.3); BLOOD UREA NITROGEN 19 mg/dL (7-20); CALCIUM 9.6 mg/dL (8.4-10.2); CARBON DIOXIDE 26 mmol/L (22-30); CHLORIDE 105 mmol/L (98-107); GLUCOSE 77 mg/dL (75-110); POTASSIUM 4.4 mmol/L (3.6-5.0); TOTAL PROTEIN 7.5 g/dL (6.3-8.2)
[2019-08-11 11:50] LABS: FREE T3 2.19 pg/mL (2.77-5.27); FREE T4 (FREE THYROXINE) 0.76 ng/dL (0.78-2.19)
[2019-08-11 12:04] LABS: THYROID STIMULATING HORMONE 0.12 uIU/mL (0.47-4.68)
== END ==
LOC: OD 09:55
PROVIDERS: ATTEND Internal Medicine Geriatric Medicine
DX: E03.9 Hypothyroidism, unspecified (principal); E78.5 Hyperlipidemia, unspecified
CPT/HCPCS: 36415; 80053; 84439; 84443; 84481; 85025; 86376

== ENCOUNTER 2019-09-28 17:57 | Emergency (ER) | payer MEDICARE, MEDICAID ==
[2019-09-28] MEDS ORDERED: KETOROLAC TROMETHAMINE INJ/PF 30 MG/1 ML SDV IV ONE (18:25)
[2019-09-28] MEDS ORDERED: MORPHINE SULFATE 10 MG/ML INJ IV ONE (18:25)
[2019-09-28] MEDS ORDERED: NORMAL SALINE 1000 ML 1,000 ML IV ONE (18:26)
[2019-09-28] MEDS ORDERED: ONDANSETRON HCL INJ/PF 4 MG/2 ML SDV IV ONE (18:26)
--- NOTE | 2019-09-28 18:27 | ER Document Report ---
ED Medical Screen (RME) - General Chief Complaint: Flank Pain Stated Complaint: FLANK PAIN Time Seen by Provider: 09/28/19 18:17 Primary Care Provider: LUANN PINTO MD [Primary Care Provider] - Follow up as needed Notes: 59-year-old female with extensive medical history with known recurrent nephrolithiasis presents to the emergency department with chief complaint of left flank pain and also with a sore throat. Patient states she was seen in the [place] [facility] 6 weeks ago, scan, and a stone was found in her left ureter and 4 stones were seen in her bladder. She is unaware if she passed any of them. Also, she complains of severe sore throat for the past day with dysphagia and a stinging sensation when swallowing Exam: Well-appearing in no acute distress, lungs are clear to auscultation all manley, regular cardiac rate and rhythm, left CVAT I have greeted and performed a rapid initial assessment of this patient. A comprehensive ED assessment and evaluation of the patient, analysis of test results and completion of medical decision making process will be conducted by an additional ED providers. TRAVEL OUTSIDE OF THE [place] IN LAST 30 DAYS: No - Related Data Home Medications: Tazadone Past Medical History - Social History Chew tobacco use (# tins/day): No Drug Abuse: None Endocrine Medical History: Reports: Hx Hypothyroidism Renal/ Medical History: Denies: Hx Peritoneal Dialysis GI Medical History: Reports: Hx Gastroesophageal Reflux Disease Musculoskeltal Medical History: Reports Hx Arthritis, Reports Hx Musculoskeletal Deformity, Reports Hx Musculoskeletal Trauma Psychiatric Medical History: Reports: Hx Anxiety, Hx Depression, Hx Post Traumatic Stress Disorder Traumatic Medical History: Reports: Hx Fractures, Hx Spine Fracture, Hx Traumatic Brain Injury Past Surgical History: Reports: Hx Appendectomy, Hx Bowel Surgery - Hx small bowel obstruction, Hx Breast Surgery - Breast augmentation/ Breast reduction, Hx Section, Hx Hysterectomy, Hx Orthopedic Surgery - L & R rotator cuff. L & R foot dorsal repair. Lumbar fusion L4-S1 - Immunizations Immunizations up to date: Yes Hx Diphtheria, Pertussis, Tetanus Vaccination: Yes Physical Exam - Vital signs Vitals: Temp Pulse Resp BP Pulse Ox 98.6 F 91 17 123/62 96 09/28/19 18:00 09/28/19 18:00 09/28/19 18:00 09/28/19 18:00 09/28/19 18:00 Course - Vital Signs Vital signs: Temp Pulse Resp BP Pulse Ox 98.6 F 91 17 123/62 96 09/28/19 18:00 09/28/19 18:00 09/28/19 18:00 09/28/19 18:00 09/28/19 18:00 Doctor's Discharge - Discharge Referrals: LUANN PINTO MD [Primary Care Provider] - Follow up as needed
[2019-09-28 19:08] LABS: ABSOLUTE EOSINOPHILS # (AUTO) 0.1 10^3/uL (0.0-0.6); ABSOLUTE LYMPHOCYTES (AUTO) 2.8 10^3/uL (0.5-4.7); ABSOLUTE MONOCYTES (AUTO) 0.9 10^3/uL (0.1-1.4); ABSOLUTE NEUT (AUTO) 7.5 10^3/uL (1.7-8.2); BASOPHILS % (AUTO) 0.3 % (0-2); EOSINOPHILS % (AUTO) 1.1 % (0-6); HEMATOCRIT 39.6 % (36.0-47.0); HEMOGLOBIN 13.3 g/dL (12.0-15.5); LYMPHOCYTES % (AUTO) 24.6 % (13-45); MEAN CORPUSCULAR HEMOGLOBIN 29.4 pg (27.0-33.4); MEAN CORPUSCULAR HGB CONC 33.6 g/dL (32.0-36.0); MEAN CORPUSCULAR VOLUME 88 fl (80-97); PLATELET COUNT 296 10^3/uL (150-450); RED BLOOD COUNT 4.53 10^6/uL (3.72-5.28); RED CELL DISTRIBUTION WIDTH 12.8 % (11.5-14.0); TOTAL CELLS COUNTED % (AUTO) 100 %; WHITE BLOOD COUNT 11.4 10^3/uL (4.0-10.5)
[2019-09-28 19:10] LABS: APPEARANCE,URINE SLIGHTLY-CLOUDY; BILIRUBIN,URINE NEGATIVE (NEGATIVE); COLOR,URINE YELLOW; GLUCOSE, URINE NEGATIVE (NEGATIVE); KETONES,URINE TRACE mg/dL (NEGATIVE); LEUKOCYTE ESTERASE,URINE NEGATIVE (NEGATIVE); NITRITE,URINE NEGATIVE (NEGATIVE); PROTEIN,URINE NEGATIVE (NEGATIVE); URINE SPECIFIC GRAVITY 1.019
[2019-09-28 19:28] LABS: ALBUMIN 4.2 g/dL (3.5-5.0); ALKALINE PHOSPHATASE 83 U/L (38-126); ANION GAP 11 (5-19); ASPARTATE AMINO TRANSFERASE 30 U/L (14-36); BILIRUBIN,DIRECT 0.3 mg/dL (0.0-0.4); BILIRUBIN,TOTAL 0.3 mg/dL (0.2-1.3); BLOOD UREA NITROGEN 13 mg/dL (7-20); CALCIUM 8.5 mg/dL (8.4-10.2); CARBON DIOXIDE 34 mmol/L (22-30); CHLORIDE 95 mmol/L (98-107); GLUCOSE 81 mg/dL (75-110); POTASSIUM 3.4 mmol/L (3.6-5.0)
--- NOTE | 2019-09-28 20:43 | ER Document Report ---
ED GI/ - General Chief Complaint: Flank Pain Stated Complaint: FLANK PAIN Time Seen by Provider: 09/28/19 18:17 Primary Care Provider: LUANN PINTO MD [Primary Care Provider] - Follow up as needed Mode of Arrival: Ambulatory Information source: Patient Notes: 59-year-old female presented to ED for extensive medical history. She states she was diagnosed with kidney stones 6 weeks ago in [facility] with a CAT scan. She states she does not know if she passed the stones or not she is having some left flank pain. She is also complaining of a sore throat for the past couple days and postnasal drip. She does have a extensive orthopedic history. She states she is got a lot of tremors that are caused by her BUN on G. Patient is alert oriented respirations regular nonlabored speaking in full sentences. TRAVEL OUTSIDE OF THE [place] IN LAST 30 DAYS: No - HPI Patient complains to provider of: Flank pain - Left, Other - Sore throat Onset: Other - Intermittent Timing/Duration: Gradual Quality of pain: Achy, Other - Sore throat Severity at maximum: Moderate Severity in ED: Moderate Pain Level: 3 Location: Left flank, Other - Sore throat Vaginal bleeding (Compared to normal period): None LMP: Hysterectomy Associated symptoms: Other - Flank pain with sore throat postnasal drip runny nose Exacerbated by: Movement, Walking Relieved by: Denies Similar symptoms previously: Yes Recently seen / treated by doctor: Yes - Related Data Home Medications: Tazadone Past Medical History - General Information source: Patient - Social History Smoking Status: Never Smoker Chew tobacco use (# tins/day): No Drug Abuse: None Family History: Reviewed & Not Pertinent, Arthritis, CAD, COPD, CVA, Hyperlipidemia, Hypertension, Malignancy Patient has suicidal ideation: No Patient has homicidal ideation: No - Past Medical History Cardiac Medical History: Reports: None Pulmonary Medical History: Reports: None EENT Medical History: Reports: None Neurological Medical History: Reports: None Endocrine Medical History: Reports: Hx Hypothyroidism Renal/ Medical History: Reports: Hx Kidney Stones Malignancy Medical History: Reports: None GI Medical History: Reports: Hx Gastroesophageal Reflux Disease, Other - Fatty tumor Musculoskeletal Medical History: Reports Hx Arthritis, Reports Hx Musculoskeletal Deformity, Reports Hx Musculoskeletal Trauma, Reports Other - Being worked up for Papo's Skin Medical History: Reports None Psychiatric Medical History: Reports: Hx Anxiety, Hx Depression, Hx Post Traumatic Stress Disorder Traumatic Medical History: Reports: Hx Fractures, Hx Spine Fracture Infectious Medical History: Reports: None Past Surgical History: Reports: Hx Appendectomy, Hx Bowel Surgery - Hx small bowel obstruction and a small large bowel obstruction, Hx Breast Surgery - Breast augmentation/ Breast reduction, Hx Section - Nondistended, Hx Hysterectomy, Hx Orthopedic Surgery - L & R rotator cuff. L & R foot dorsal repair. Lumbar fusion L4-S1 - Immunizations Immunizations up to date: Yes Hx Diphtheria, Pertussis, Tetanus Vaccination: Yes Hx Pneumococcal Vaccination: 05/29/14 Review of Systems - Review of Systems Constitutional: No symptoms reported EENT: Nose pain, Nose congestion, Nose discharge, Sinus discharge, Throat pain Cardiovascular: No symptoms reported Respiratory: Cough Gastrointestinal: No symptoms reported Genitourinary: Flank pain Female Genitourinary: No symptoms reported Musculoskeletal: No symptoms reported Skin: No symptoms reported Hematologic/Lymphatic: No symptoms reported Neurological/Psychological: No symptoms reported -: Yes All other systems reviewed and negative Physical Exam - Vital signs Vitals: Temp Pulse Resp BP Pulse Ox 98.6 F 91 17 123/62 96 09/28/19 18:00 09/28/19 18:00 09/28/19 18:00 09/28/19 18:00 09/28/19 18:00 Interpretation: Normal - General General appearance: Appears well, Alert - HEENT Head: Normocephalic, Atraumatic Eyes: Normal Pupils: PERRL Ears: Normal External canal: Normal Tympanic membrane: Normal Sinus: Normal Nasal: Purulent discharge, Swelling Mouth/Lips: Normal Mucous membranes: Normal Pharynx: Post nasal drainage. No: Erythema, Exudate, Peritonsillar abscess, Retropharyngeal abscess, Tonsillar hypertrophy, Uvular edema, Potential airway comprom. Neck: Normal - Respiratory Respiratory status: No respiratory distress Chest status: Nontender Breath sounds: Normal Chest palpation: Normal - Cardiovascular Rhythm: Regular Heart sounds: Normal auscultation Murmur: No - Abdominal Inspection: Normal Distension: No distension Bowel sounds: Normal Tenderness: Nontender Organomegaly: No organomegaly - Back Back: Normal, Nontender, CVA tenderness - Left flank tenderness - Extremities General upper extremity: Normal inspection, Nontender, Normal color, Normal ROM, Normal temperature General lower extremity: Normal inspection, Nontender, Normal color, Normal ROM, Normal temperature, Normal weight bearing. No: Gabby's sign - Neurological Neuro grossly intact: Yes Cognition: Normal Orientation: AAOx4 [place] Coma Scale Eye Opening: Spontaneous Mariah Coma Scale Verbal: Oriented Mariah Coma Scale Motor: Obeys Commands Mariah Coma Scale Total: 15 Speech: Normal Motor strength normal: LUE, RUE, LLE, RLE Sensory: Normal - Psychological Associated symptoms: Normal affect, Normal mood - Skin Skin Temperature: Warm Skin Moisture: Dry Skin Color: Normal Course - Re-evaluation Re-evalutation: 09/28/19 20:43 Discussed labs with patient we will get a renal ultrasound to rule out any hydronephrosis or any new problems causing her pain. 09/28/19 23:20 Ultrasound kidney showed no acute changes there is no kidney stones. Patient was discharged home with flank pain upper respiratory infection and viral sore throat. Patient was able to verbalize understanding and agreement with treatment plan and patient was discharged home. - Vital Signs Vital signs: Temp Pulse Resp BP Pulse Ox 98.3 F 78 20 104/44 L 96 09/28/19 22:09 09/28/19 22:09 09/28/19 22:09 09/28/19 22:09 09/28/19 22:09 - Laboratory Result Diagrams: 09/28/19 18:44 09/28/19 18:44 Laboratory results interpreted by me: 09/28/19 09/28/19 09/28/19 18:44 18:44 18:44 WBC 11.4 H Potassium 3.4 L Chloride 95 L Carbon Dioxide 34 H Urine Ketones TRACE H Urine Urobilinogen 2.0 H - Diagnostic Test Radiology reviewed: Image reviewed, Reports reviewed Discharge - Discharge Clinical Impression: Left flank pain, Viral sore throat URI (upper respiratory infection) Qualifiers: URI type: unspecified viral URI Qualified Code(s): J06.9 - Acute upper respiratory infection, unspecified Condition: Stable Disposition: HOME, SELF-CARE Additional Instructions: Flank Pain We weren't able to prove an exact cause for your flank pain. Pain in the flank can be caused by a muscle strain or spasm. Sometimes a kidney stone causes pain, but can't be found on our tests. Infection in the kidney should be evident on a urine test. Early shingles can occasionally cause flank pain, without the rash that proves the diagnosis. On rare occasions, disease of the pancreas, aorta, spleen, or colon can create pain in the flank. At this time, there's no evidence of a dangerous condition, and it seems safe for you to be at home. If the pain goes away and does not come back, no further testing will be needed. If pain persists, or becomes more severe, we may need to repeat some tests or order additional new testing. Blood in the urine, urgency to urinate frequently, and pain that radiates to the groin can indicate a kidney stone. Fever may mean that the pain is due to infection, either of the kidney or the colon (diverticulitis). If your pain is early shingles, you should develop an eruption of blisters in the painful area within a few days. Call the doctor or return if you have pain that is spreading or becoming more severe, pain that does not resolve with time, fever, or any other new symptoms. SORE THROAT: Sore throats may be caused by viruses, bacteria, or fungi. Most are due to a virus, and must get better on their own. Bacterial sore throats, particularly those due to "strep," need treatment with antibiotics. If an antibiotic is prescribed, be sure to take the medication for a full 10 days. Failure to take the antibiotic can result in complications such as rh eumatic fever. Sometimes, an injection of antibiotics is given instead of pills or liquid. This single "shot" is equal in effectiveness to the oral medication. To relieve symptoms, take acetaminophen for pain. Sip clear liquids frequently, or eat popsicles or ice chips. Anesthetic sprays or lozenges may help. Make sure the air in the room is not too dry. Avoid using decongestants or antihistamines. Call the doctor if there is no improvement in two days, or if you have difficulty breathing, increasing throat pain, high fever, rash, or frequent vomiting. UPPER RESPIRATORY ILLNESS: You have a viral infection of the respiratory passages -- a "cold." This common infection causes nasal congestion, drainage, and often sore throat and cough. It is highly contagious. The disease usually lasts about 10 to 14 days. There is no "cure" for the viral infection -- it must run its course. If there is a complication, such as bacterial infection in the nose, sinuses, middl e ear, or bronchial tubes, antibiotics may be required. The antibiotics won't affect the virus. Drink plenty of fluids. A humidifier may help. An expectorant medication or decongestant may make you more comfortable. Use acetaminophen or ibuprofen for fever or aches. See the doctor if fever persists over two days, if there is any significant worsening of your symptoms, or if you simply fail to improve as expected. You were recommended treatment with with Claritin 10 mg Sudafed 30 mg and Mucinex 600 mg. These are all liql-lzc-[id number] medications for cough cold congestion. You do need to call the go to the pharmacist to get the Sudafed from behind the counter please get a little red pills they are more effective. He could also use Flonase which is [id number] 1 spray each nostril twice a day. He could also use salt soda solution gargles. These will help to remove the drainage from the back your throat. Chloraseptic spray was [id number] that will also help with your sore throat. Salt and soda solution gargle 1 quart of water 1 tablespoon of salt 1 teaspoon of baking soda Mixed 3 ingredients together and boil for 1 minute Placed in a covered quart jar Use 1/2 ounce of cold solution to gargle 3 times a day COUGH-SUPPRESSANT & EXPECTORANT MEDICATION: You are to use a cough medication as needed for relief of symptoms. This medicine is a combination of an expectorant (to make the mucous thinner and more easily "coughed up") and a cough suppressant (to reduce the frequency of coughing). The cough-suppressant medicine is related to narcotics. You may experience mild nausea and sleepiness. Some patients who are very sensitive to narcotics may have stomach pain from this medicine. Taking the medicine with food reduces these side effects. Do not drive or work with machinery until you know how this medicine affects you. The expectorant should have no side effects. Iodine-containing expectorants (such as organidin) should not be taken by persons with active thyroid disease unless approved by your doctor. Call the doctor if you develop shortness of breath, hives, rash, itching, lightheadedness, or severe nausea and vomiting. USE OF ACETAMINOPHEN (Tylenol): Acetaminophen may be taken for pain relief or fever control. It's much safer than aspirin, offering a wider range of "safe" dosages. It is safe during . Some brand names are Tylenol, Panadol, Datril, Anacin 3, Tempra, and Liquiprin. Acetaminophen can be repeated every four hours. The following are maximum recommended dosages: >89 pounds or adults 650 mg to 900 mg Acetaminophen can be repeated every four hours. Maximum dose not to exceed 4000 mg a day. FOLLOW-UP CARE: If you have been referred to a physician for follow-up care, call the physicians office for an appointment as you were instructed or within the next two days. If you experience worsening or a significant change in your symptoms, notify the physician immediately or return to the Emergency Department at any time for re-evaluation. Referrals: LUANN PINTO MD [Primary Care Provider] - Follow up in 3-5 days
--- NOTE | 2019-09-28 23:00 | RADIOLOGY REPORT (SQ) ---
Ultrasound retroperitoneum on 09/28/2019 at 10:18 PM CLINICAL INDICATION: Left-sided back pain, history of kidney stones COMPARISON: CT from 06/05/2019 FINDINGS: Multiple sonographic images are obtained throughout the kidneys and bladder, both transverse and sagittal images are obtained. Right kidney measures approximately 8.8 cm in greatest [id number] length. Left kidney measures approximately 9.9 cm in greatest [id number] length. Small left renal cyst is noted. There is no hydronephrosis bilaterally. Kidneys otherwise appear morphologically unremarkable. No bladder wall thickening or intraluminal filling defect is noted. IMPRESSION: Mild right renal atrophy, otherwise essentially unremarkable.
[2019-09-28 23:30] VITALS: BP 102/53
== END 2019-09-28 23:31 | disposition home or self-care (01) ==
LOC: ER 17:57
DX: J06.9 Acute upper respiratory infection, unspecified (principal); J02.9 Acute pharyngitis, unspecified; R10.9 Unspecified abdominal pain; Z87.442 Personal history of urinary calculi; Z90.710 Acquired absence of both cervix and uterus
CPT/HCPCS: 99284; 96361; 96374; 96375; 36415; 87070; 87880; 85025; 80053; 81001; 76770; J1885; J2270; J2405; J7030

== ENCOUNTER → 2019-10-05 | Outpatient (CLI) | payer MEDICARE, MEDICAID | LOC: OD 07:07 | PROVIDERS: ATTEND Internal Medicine Geriatric Medicine | DX: E27.9 Disorder of adrenal gland, unspecified (principal) | CPT/HCPCS: 36415; 82533 ==

== ENCOUNTER → 2019-10-05 | Outpatient (CLI) | payer MEDICARE, MEDICAID ==
--- NOTE | 2019-10-06 15:10 | RADIOLOGY REPORT (SQ) ---
EXAM DESCRIPTION: MRI CERVICAL SPINE COMBO COMPLETED DATE/TIME: 10/05/2019 1:43 pm REASON FOR STUDY: CERVICAL RADICULOPATHY (M54.12) M54.12 RADICULOPATHY, CERVICAL REGION COMPARISON: MRI 07/14/2014. CT 02/15/2019 TECHNIQUE: Sagittal and Axial imaging includes T1, T2, STIR and gradient echo sequences. T1 post constantine olinium sequences. CONTRAST TYPE AND DOSE: 10 mL Dotarem. RENAL FUNCTION: Not indicated. ACR Type II contrast agent associated with few, if any, unconfounded cases of NSF LIMITATIONS: None. FINDINGS: ALIGNMENT: Normal. VERTEBRAE: Intact. BONE MARROW: Normal. No marrow replacement or reactive changes. DISCS: Normal. No significant abnormal signal or loss of height. HARDWARE: None in the spine. CORD AND BASE OF BRAIN: Normal in size and signal intensity. SOFT TISSUES: No soft tissue masses. C1-C2: No significant spinal stenosis. C2-C3: No significant spinal stenosis or exit foraminal stenosis. C3-C4: Broad-based disc/ osteophyte complex that minimally deforms the left side of the spinal cord. No foraminal stenosis. See image 8 series 6. C4-C5: No significant spinal stenosis or exit foraminal stenosis. C5-C6: No significant spinal stenosis or exit foraminal stenosis. C6-C7: No significant spinal stenosis or exit foraminal stenosis. C7-T1: Uncovertebral osteophytes narrow the left neural foramen. UPPER THORACIC: Incompletely imaged. No significant spinal stenosis or exit foraminal stenosis. ENHANCEMENT: No abnormal enhancement. OTHER: No other significant finding. IMPRESSION: 1. There is a broad-based disc/osteophyte complex at C3-4 that minimally deforms the le ft side of the spinal cord. 2. Uncovertebral osteophytes on the left slightly narrow the left neural foramen at C7-T1. 3. ACDF from C4-C7 with screws into the vertebral bodies and disc implants. COMMENT: None. TECHNICAL DOCUMENTATION: JOB ID: [id number] [employer]- All Rights Reserved Reading location - IP/workstation name: [email or web address]
== END ==
LOC: RAD 12:32
PROVIDERS: ATTEND Physician Assistant
DX: M54.12 Radiculopathy, cervical region (principal); M25.78 Osteophyte, vertebrae
CPT/HCPCS: 72156; A9576

== ENCOUNTER → 2019-12-15 | Outpatient (CLI) | payer MEDICARE, MEDICAID ==
[2019-12-15 09:53] LABS: FREE T3 2.72 pg/mL (2.77-5.27); FREE T4 (FREE THYROXINE) 1.07 ng/dL (0.78-2.19)
[2019-12-15 12:40] LABS: ALBUMIN 3.4 g/dL (3.5-5.0); ALKALINE PHOSPHATASE 55 U/L (38-126); ANION GAP 8 (5-19); ASPARTATE AMINO TRANSFERASE 21 U/L (14-36); BILIRUBIN,TOTAL 0.1 mg/dL (0.2-1.3); BLOOD UREA NITROGEN 22 mg/dL (7-20); CALCIUM 9.2 mg/dL (8.4-10.2); CARBON DIOXIDE 30 mmol/L (22-30); CHLORIDE 104 mmol/L (98-107); CHOLESTEROL 175.98 mg/dL (0-200); GLUCOSE 73 mg/dL (75-110); POTASSIUM 4.3 mmol/L (3.6-5.0); TOTAL PROTEIN 5.8 g/dL (6.3-8.2); TRIGLYCERIDES 90 mg/dL (<150)
[2019-12-15 12:51] LABS: DIRECT LDL 113 mg/dL (<100)
== END ==
LOC: OD 08:22
PROVIDERS: ATTEND Internal Medicine Geriatric Medicine
DX: E78.5 Hyperlipidemia, unspecified (principal); E03.9 Hypothyroidism, unspecified
CPT/HCPCS: 36415; 80053; 80061; 84436; 84439; 84443; 84481

== ENCOUNTER 2020-01-03 04:12 | Observation (INO) | payer MEDICARE, MEDICAID ==
[2020-01-03] MEDS ORDERED: ONDANSETRON HCL INJ/PF 4 MG/2 ML SDV IV ONE ×2 (05:25→06:44)
[2020-01-03] MEDS ORDERED: MORPHINE SULFATE 10 MG/ML INJ IV ONE ×2 (05:25→06:44)
--- NOTE | 2020-01-03 05:27 | ER Document Report ---
ED General - General TRAVEL OUTSIDE OF THE [place] IN LAST 30 DAYS: No <SOBEIDA NEWTON - Last Filed: 01/03/20 07:46> <MONTEMAYORREYK Mouna - Last Filed: 01/03/20 12:40> - General Chief Complaint: Neck and Upper Back Pain Stated Complaint: CERVICAL PAIN,HEADACHE Time Seen by Provider: 01/03/20 05:13 Primary Care Provider: TANMAY DONOHUE MD [ACTIVE STAFF] - Follow up in 1 week LUANN PINTO MD [Primary Care Provider] - Follow up tomorrow Notes: Patient is a 59-year-old female that comes emergency department for several complaints. Chief complaint is after she went to the bathroom tonight, she stood up, passed out, struck the back of her head. After this she had a severe headache and she vomited twice. She also reports sharp pain in her neck which is chronic, she has had 2 cervical fusions and is pending referral to spinal surgery. She denies any numbness, recent injury other than falling and hitting her head, incontinence. She states she takes tramadol at home for the pain but it is not working. Patient also states that she intermittently has drops in her blood pressure and she is being treated for hypothyroidism and is being evaluated for an enlarged adrenal gland. She denies being on steroids or being diagnosed with Papo's disease when asked. She is not on a blood thinner. She denies alcohol. She reports current dizziness. (SOBEIDA NEWTON) - Related Data Allergies/Adverse Reactions: No Known Allergies Allergy (Unverified 01/03/20 06:42) Past Medical History - General Information source: Patient - Social History Smoking Status: Never Smoker Drug Abuse: None Lives with: Family Family History: Reviewed & Not Pertinent, Arthritis, CAD, COPD, CVA, Hyperlipidemia, Hypertension, Malignancy Patient has suicidal ideation: No Patient has homicidal ideation: No Endocrine Medical History: Reports: Hx Hypothyroidism Renal/ Medical History: Reports: Hx Kidney Stones. 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 L & R foot dorsal repair. Lumbar fusion L4-S1 - Immunizations Immunizations up to date: Yes Hx Diphtheria, Pertussis, Tetanus Vaccination: Yes Hx Pneumococcal Vaccination: 05/29/14 <JADIELLAURASOBEIDA - Last Filed: 01/03/20 07:46> Review of Systems - Review of Systems Constitutional: See HPI EENT: No symptoms reported Cardiovascular: See HPI Respiratory: No symptoms reported Gastrointestinal: No symptoms reported Genitourinary: No symptoms reported Female Genitourinary: No symptoms reported Musculoskeletal: See HPI Skin: No symptoms reported Hematologic/Lymphatic: No symptoms reported Neurological/Psychological: See HPI <JADIELLAURASOBEIDA - Last Filed: 01/03/20 07:46> Physical Exam <AMANSOBEIDA - Last Filed: 01/03/20 07:46> - Vital signs Vitals: Temp Pulse Resp BP Pulse Ox 97.8 F 93 16 145/53 H 99 01/03/20 04:22 01/03/20 04:22 01/03/20 04:22 01/03/20 04:22 01/03/20 04:22 - Notes Notes: GENERAL: Patient speaks anxiously but she does not appear to be in distress HEAD: Normocephalic, there is a small area over the right posterior parietal area consistent with soft tissue swelling but there is no open wound. EYES: Pupils equal, round, and reactive to light. Extraocular movements intact. ENT: Oral mucosa moist, tongue midline. Oropharynx unremarkable. Airway patent. Nares patent, sinuses non-tender, ear canals unremarkable, TM's intact. NECK: Full range of motion. Supple. Trachea midline. No lymphadenopathy. LUNGS: Clear to auscultation bilaterally, no wheezes, rales, or rhonchi. No respiratory distress. Non-tender chest wall. HEART: Regular rate and rhythm. No murmur no signs of trauma. ABDOMEN: Soft, non-tender. Non-distended. Bowel sounds present in all 4 quadran ts. No signs of trauma. GENITOURINARY: Deferred EXTREMITIES: Moves all 4 extremities spontaneously. No noted signs of trauma. No edema, normal radial and dorsalis pedis pulses bilaterally. No cyanosis. BACK: no cervical, thoracic, lumbar midline tenderness. No signs of trauma. Tenderness along the left paracervical and trapezius muscles. No saddle anesthesia, normal distal neurovascular exam. Moves all extremities in full range of motion. NEUROLOGICAL: Alert and oriented x3. Normal speech. Cranial nerves II through XII grossly intact. Strength 5/5 in all extremities. PSYCH: Normal affect, normal mood. SKIN: Warm, dry, normal turgor. No rashes or lesions noted. (SOBEIDA NEWTON) Course - Laboratory Result Diagrams: 01/03/20 06:05 01/03/20 07:00 <SOBEIDA NEWTON - Last Filed: 01/03/20 07:46> - Laboratory Result Diagrams: 01/03/20 06:05 01/03/20 07:00 <ALFRED MONTEMAYOR - Last Filed: 01/03/20 12:40> - Re-evaluation Re-evalutation: CT of the head performed because of head injury with vomiting episodes. This showed no acute findings. CT of the neck with multiple degenerative changes but no acute findings. Patient having a lot of pain in the neck, this did improve with symptom management here in the emergency department. CBC shows mild leukocytosis, nonspecific given her exam, chemistry unremarkable including sodium and potassium. EKG and chest x-ray are unremarkable. Troponin is negative. Patient reports that she has actually had syncopal episodes fairly often including twice this year. She has a pending follow-up as already and a close follow-up with her primary care for thyroid medication control. Her vital signs here are unremarkable. Her orthostatics are unremarkable. She did not have chest pain, shortness of breath, or any other symptoms. Discussed work-up in detail, postconcussive symptoms, head injury precautions, and close follow-up. Because of pandemic causing more difficult follow-up after discussion I did provide patient with some symptom management, she will contact her pain management provider and inform them and she will follow-up with them as soon as she can for additional management. Patient states appreciation and agreement. Stable at time of discharge. (SOBEIDA NEWTON) 01/03/20 12:38 Patient signed out to me at shift change pending volume resuscitation with normal saline as she was orthostatic and symptomatic. After a liter of fluid her pressure was rechecked and she was still hypotensive. Will give another liter normal saline and then recheck orthostats, she is still orthostatic and hypotensive. She is symptomatic complaining of lightheaded and pain behind the eyes. Her work-up was otherwise unremarkable. I called and spoke with her primary doctor, Dr. Pinto. He agreed to admit the patient to telemetry. He will see her in the hospital. Patient is stable for admission at this time and being monitored. (ALFRED MONTEMAYOR) - Vital Signs Vital signs: Temp Pulse Resp BP Pulse Ox 98.2 F 68 16 94/54 L 98 01/03/20 10:01 01/03/20 11:58 01/03/20 10:01 01/03/20 11:58 01/03/20 10:01 - Laboratory Laboratory results interpreted by me: 01/03/20 01/03/20 01/03/20 04:33 06:05 07:00 WBC 12.1 H Lymph % (Auto) 11.5 L Absolute Neuts (auto) 10.0 H Seg Neutrophils % 82.9 H Sodium 132.4 L BUN 35 H Glucose 113 H Calcium 8.2 L AST 69 H Urine Ketones TRACE H - EKG Interpretation by Me Additional EKG results interpreted by me: EKG shows sinus rhythm at a rate of 89, QTC of 458, OK interval of 156. Normal axis. No T wave inversions or ST segment changes in consecutive leads. Machine reads as normal. (SOBEIDA NEWTON) Discharge <SOBEIDA NEWTON - Last Filed: 01/03/20 07:46> - Discharge Admitting Provider: Jeanie Unit Admitted: Telemetry <ALFRED MONTEMAYOR - Last Filed: 01/03/20 12:40> - Discharge Clinical Impression: Neck pain, Orthostatic hypotension Episode of syncope Qualifiers: Syncope type: unspecified Qualified Code(s): R55 - Syncope and collapse Head injury Qualifiers: Encounter type: initial encounter Qualified Code(s): S09.90XA - Unspecified injury of head, initial encounter Condition: Stable Disposition: ADMITTED INPATIENT Additional Instructions: Your work-up including imaging of the head, laboratory work-up, EKG, chest x-ray do not show any concerning new findings at this time. Please follow-up with your provider and potentially endocrinology. Because of your passing out also follow-up with the listed cardiac referral. In regards to your neck I recommend ice for the first day and then heat after wards, take pain medication if needed as prescribed, consider [id number] stool softener to avoid constipation. Use with precautions listed. Please follow head injury precautions listed below. Return for any concerning symptoms. See additional instructions below. Head Injury Precautions At this point, there is no evidence that your head injury is serious. Observation is necessary, however. Limit activity for the first 24 hours. During the first 24 hours, check to see approximately every two to three hours that the patient is easily arou sable, responds normally, and can perform common tasks such as walking without difficulty. Contact your doctor or go to the hospital if any of the following things occur: Persistent vomiting, difficulty in arousing the patient, worsening or continued headache, or failure to improve as expected. Head injuries can cause symptoms that persist for a few days or even a few weeks. Post-Concussion Syndrome Post-concussion syndrome often follows a mild head injury. Dizziness, mild nausea, mild headache, trouble concentrating, and a general sense of "not being right" may persist for a week or two. This is a frequent complication of concussion. However, if the symptoms worsen, or new symptoms develop, you should be re-examined by the physician. There is no specific cure for post-concussion syndrome. You can take mild pain medication such as ibuprofen or acetaminophen. While you should not drive if you are dizzy, you can get back to your regular activities as quickly as the symptoms will allow. And while vigorous exercise may worsen the headache, mild physical activity often is helpful. Sitting and thinking about your symptoms will worsen them. If difficulties continue, you may need referral for special therapy to help you regain full mental function. Call the physician if you are worsening, or if symptoms are still present in one week. Report any new symptoms immediately. Syncopal Episode Syncope (fainting or near-fainting) can occur from many different health problems. Or it can be a simple fainting spell requiring no treatment. It is safe for you to go home, but further evaluation will likely be necessary. Your work-up may include tests for internal bleeding, heart disease, medica tion problems, or near-strokes. Tests are not always required, however, depending on the nature of your problem. The warning signs of an impending faint include: dizziness, lightheadedness, nausea, hot flashes, tingling, and weakness. If this happens, lay down and put your feet up, then wait until all of these symptoms have passed before standing up again. If these episodes become recurrent, or if you develop chest pain, heart palpitations, mental confusion, blurred vision, or headache, then you should call the physician, or go to the emergency room. Prescriptions: Oxycodone HCl/Acetaminophen [Percocet 5-325 mg Tablet] 1 - 2 tab PO TID PRN #12 tablet PRN Reason: Ondansetron [Zofran Odt 4 mg Tablet] 1 - 2 tab PO Q4H PRN #20 tab.rapdis PRN Reason: For Nausea/Vomiting Referrals: LUANN PINTO MD [Primary Care Provider] - Follow up tomorrow TANMAY DONOHUE MD [ACTIVE STAFF] - Follow up in 1 week
[2020-01-03 06:22] LABS: ABSOLUTE LYMPHOCYTES (AUTO) 1.4 10^3/uL (0.5-4.7); ABSOLUTE MONOCYTES (AUTO) 0.7 10^3/uL (0.1-1.4); BASOPHILS % (AUTO) 0.1 % (0-2); EOSINOPHILS % (AUTO) 0.1 % (0-6); HEMATOCRIT 37.4 % (36.0-47.0); HEMOGLOBIN 12.1 g/dL (12.0-15.5); LYMPHOCYTES % (AUTO) 11.5 % (13-45); MEAN CORPUSCULAR HEMOGLOBIN 29.4 pg (27.0-33.4); MEAN CORPUSCULAR HGB CONC 32.3 g/dL (32.0-36.0); MEAN CORPUSCULAR VOLUME 91 fl (80-97); MONOCYTES % (AUTO) 5.4 % (3-13); PLATELET COUNT 229 10^3/uL (150-450); RED CELL DISTRIBUTION WIDTH 13.2 % (11.5-14.0); SEGMENTED NEUTROPHILS % (AUTO) 82.9 % (42-78); TOTAL CELLS COUNTED % (AUTO) 100 %; WHITE BLOOD COUNT 12.1 10^3/uL (4.0-10.5)
--- NOTE | 2020-01-03 06:46 | RADIOLOGY REPORT (SQ) ---
EXAM DESCRIPTION: CT CERVICAL SPINE WITHOUT IV CONTRAST COMPLETED DATE/TME: 01/03/2020 05:24 CLINICAL HISTORY: 59 years Female, head injury, neck pain, hx surgery Comparison: None. Technique: No contrast. Coronal and sagittal reformat. This exam was performed according to our departmental dose-optimization program, which includes automated exposure control, adjustment of the mA and/or kV according to patient size and/or use of iterative reconstruction technique.[facility]: Dose Right [facility]: CareDose [facility]: Dose Right [facility]: Teradose 4D [facility]: Agent Panda LIMITATIONS: None Findings: Anterior C4-C7 hardware fusion and intervertebral disc replacement. Moderate disc bulge-osteophyte complex at the C3-C4 level. Moderate left C4 foraminal stenosis. Chronic. Mild mid cervical spondylosis. Atherosclerotic vascular disease. Normal alignment. Normal curvature. No fracture. Normal vertebral heights. Partially imaged nuchal soft tissues, inferior cranium, and upper thorax appear otherwise grossly intact. IMPRESSION: No acute findings.
--- NOTE | 2020-01-03 06:50 | RADIOLOGY REPORT (SQ) ---
EXAM DESCRIPTION: CT HEAD WITHOUT IV CONTRAST COMPLETED DATE/TME: 01/03/2020 05:24 CLINICAL HISTORY: 59 years Female, head injury, vomiting COMPARISON: None. TECHNIQUE: No contrast. Coronal and sagittal reformat. This exam was performed according to our departmental dose-optimization program, which includes automated exposure control, adjustment of the mA and/or kV according to patient size and/or use of iterative reconstruction technique. FINDINGS: No hemorrhage or infarct. No mass, mass effect, or midline shift. Atherosclerosis. Brain and extra-axial structures appear otherwise intact. IMPRESSION: No acute findings.
--- NOTE | 2020-01-03 06:53 | RADIOLOGY REPORT (SQ) ---
EXAM DESCRIPTION: XR CHEST 1 VIEW COMPLETED DATE/TME: 01/03/2020 05:24 CLINICAL HISTORY: 59 years Female, syncopal episode COMPARISON: 02/15/19 NUMBER OF VIEWS/TECHNIQUE: 1/AP FINDINGS: Adequate lung volume, clear parenchyma, normal cardiac silhouette, and cervical spinal hardware. IMPRESSION: No acute cardiopulmonary findings.
[2020-01-03 07:27] LABS: ALBUMIN 4.6 g/dL (3.5-5.0); ALKALINE PHOSPHATASE 86 U/L (38-126); ANION GAP 9 (5-19); ASPARTATE AMINO TRANSFERASE 69 U/L (14-36); BILIRUBIN,DIRECT 0.3 mg/dL (0.0-0.4); BILIRUBIN,TOTAL 0.5 mg/dL (0.2-1.3); BLOOD UREA NITROGEN 35 mg/dL (7-20); CALCIUM 8.2 mg/dL (8.4-10.2); CARBON DIOXIDE 25 mmol/L (22-30); CHLORIDE 98 mmol/L (98-107); GLUCOSE 113 mg/dL (75-110); POTASSIUM 4.3 mmol/L (3.6-5.0); TOTAL PROTEIN 7.1 g/dL (6.3-8.2)
[2020-01-03] MEDS ORDERED: HYDROCODONE/ACETAMINOPHEN 5-325 MG (6 TAB/ER DISP) PO PRN (07:55)
[2020-01-03] MEDS ORDERED: ONDANSETRON ODT 4 MG TAB (6 TAB/ER DISP) PO PRN (07:55)
[2020-01-03] MEDS ORDERED: NORMAL SALINE 1000 ML 1,000 ML IV ONE ×3 (08:05→15:45)
--- NOTE | 2020-01-03 08:08 | EKG REPORT ---
SEVERITY:- NORMAL ECG - SINUS RHYTHM : Confirmed by: Mala Caba MD 03-Jan-2020 08:07:50
[2020-01-03 10:44] LABS: APPEARANCE,URINE CLEAR; BILIRUBIN,URINE NEGATIVE (NEGATIVE); COLOR,URINE YELLOW; GLUCOSE, URINE NEGATIVE (NEGATIVE); KETONES,URINE TRACE mg/dL (NEGATIVE); PROTEIN,URINE NEGATIVE (NEGATIVE); URINE SPECIFIC GRAVITY 1.014; UROBILINOGEN,URINE NEGATIVE mg/dL (<2.0)
[2020-01-03 14:29] VITALS: BP 94/53
[2020-01-03] MEDS ORDERED: NORMAL SALINE 1000 ML 1,000 ML IV PRN (15:33)
--- NOTE | 2020-01-03 17:44 | H&P/Discharge Summary ---
Discharge Summary Admission Date/PCP: 01/03/20 12:47 LUANN PINTO Discharge Date: 01/03/20 - Patient signed out against medical advise before my physical presence to evaluate her medical condition due to her demand for IV Morphine for her pain management despite her persistent hypotension. - Discharge Diagnosis (1) Fall in home Is this a current diagnosis for this admission?: Yes Summary: See admitting attending physician orders for details about care plan. (2) Orthostatic hypotension Is this a current diagnosis for this admission?: Yes Summary: See admitting attending physician orders for details about care plan. (3) Syncope and collapse Is this a current diagnosis for this admission?: Yes Summary: See admitting attending physician orders for details about care plan. (4) Acute prerenal azotemia Is this a current diagnosis for this admission?: Yes Summary: See admitting attending physician orders for details about care plan. (5) Cervical spondylosis Is this a current diagnosis for this admission?: Yes Summary: See admitting attending physician orders for details about care plan. (6) Bulging of cervical intervertebral disc Is this a current diagnosis for this admission?: Yes Summary: See admitting attending physician orders for details about care plan. (7) Foraminal stenosis of cervical region Is this a current diagnosis for this admission?: Yes (8) Neck pain Is this a current diagnosis for this admission?: Yes Summary: See admitting attending physician orders for details about care plan. (9) Upper back pain Is this a current diagnosis for this admission?: Yes Summary: See admitting attending physician orders for details about care plan. (10) Hyponatremia Is this a current diagnosis for this admission?: Yes Summary: See admitting attending physician orders for details about care plan. (11) Hypocalcemia Is this a current diagnosis for this admission?: Yes Summary: See admitting attending physician orders for details about care plan. Home Medications: Furosemide [Lasix 40 mg Tablet] 40 mg PO QAM 08/10/14 Lidocaine [Lidoderm 5% (700 mg) Transdermal Patch] 1 patch TP Q12 PRN 08/10/14 Montelukast Sodium [Singulair 10 mg Tablet] 10 mg PO DAILY 08/10/14 Tramadol HCl 1 tab PO TID 08/10/14 Carisoprodol [Soma 350 Mg Tablet] 350 mg PO TID 01/03/20 Cyclosporine 0.05% Oph Emulsio [Restasis 0.05% Opthalmic Droperette] 1 drop OU BID 01/03/20 Liothyronine Sodium 5 mcg PO DAILY 01/03/20 Lorazepam [Ativan 0.5 mg Tablet] 0.5 mg PO BID 01/03/20 Venlafaxine HCl [Venlafaxine HCl ER] 150 mg PO BID 01/03/20 Allergies/Adverse Reactions: No Known Allergies Allergy (Unverified 01/03/20 06:42) History of Present Illness Admission Date/PCP: 01/03/20 12:47 LUANN OSUNKVALENTIN Patient complains of: Neck and Upper Back Pain History of Present Illness: ALEJANDRINA SEE is a 59 year old female patient known to my practice who presen alessio to the ED with complain about neck and upper back pain that developed after incidental fall in her home. She reported that she passed out upon getting up from the bathroom toilet and struck her head. She reported subsequent development of severe headache, sharp pain in her neck, and vomited twice before presenting to the ED. She denied any associated numbness or incontinence. She denied alcohol consumption. Her initial ED evaluation was unrevealing except for low serum sodium level, elevated BUN, Glucose, and AST with decreased serum calcium. There was leukocytes with left shift although patient denied fever or chills, or symptoms suggestive of genitourinary symptoms. Her radiographic ev aluation including chest X ray, CT scan of head and cervical spine were unrevealing for acute pathologic changes. Her 12 lead EKG was normal. In the process of discharging patient home from the ED she complain of postural dizziness with reported orthostasis. The ED provider called and discussed the case with me. I did agree to admit her to observation telemetry bed for IV hydration due to concern that dehydration may be the cause of her hypotension and associated fall and dizziness. Her morbidities are as listed below. Past Medical History Endocrine Medical History: Reports: Hypothyroidism GI Medical History: Reports: Gastroesophageal Reflux Disease Musculoskeltal Medical History: Reports: Arthritis Psychiatric Medical History: Reports: Depression, Post Traumatic Stress Disorder Traumatic Medical History: Reports: Traumatic Brain Injury Hematology: Denies: Anemia, Sickle Cell Disease Past Surgical History Past Surgical History: Reports: Appendectomy, Section - Nondistended, Hysterectomy, Orthopedic Surgery - L & R rotator cuff. L & R foot dorsal repair. Lumbar fusion L4-S1 Denies: Amputation Social History Lives with: Family Smoking Status: Never Smoker Frequency of Alcohol Use: Rare Hx Recreational Drug Use: No Hx Prescription Drug Abuse: No Family History Family History: Reviewed & Not Pertinent, Arthritis, CAD, COPD, CVA, Hyperlipidemia, Hypertension, Malignancy Parental Family History Reviewed: Yes Children Family History Reviewed: Yes Sibling(s) Family History Reviewed.: Yes Review of Systems ROS unobtainable: Other - Patient signed out against medical advise before my physical presence to evaluate her medical condition due to her demand for IV Morphine for her pain management despite her persistent hypotension. All systems: reviewed and no additional remarkable complaints except as stated Physical Exam Vital Signs: Temp Pulse Resp BP Pulse Ox 98.2 F 68 18 94/53 L 89 L 01/03/20 13:59 01/03/20 11:58 01/03/20 14:01 01/03/20 14:00 01/03/20 14:01 Intake & Output 01/02/20 01/03/20 01/04/20 06:59 06:59 06:59 Intake Total 1999 Balance 1999 Weight 56.2 kg Patient signed out against medical advise before my physical presence to evaluate her medical condition due to her demand for IV Morphine for her pain management despite her persistent hypotension. Results Laboratory Results: 01/03/20 06:05 01/03/20 07:00 01/03/20 01/03/20 01/03/20 04:33 06:05 06:05 WBC 12.1 H RBC 4.10 Hgb 12.1 Hct 37.4 MCV 91 MCH 29.4 MCHC 32.3 RDW 13.2 Plt Count 229 Seg Neutrophils % 82.9 H Sodium Cancelled Potassium Cancelled Chloride Cancelled Carbon Dioxide Cancelled Anion Gap Cancelled BUN Cancelled Creatinine Cancelled Est GFR ( Amer) Cancelled Est GFR (Non-Af Amer) Cancelled Glucose Cancelled Calcium Cancelled Magnesium Cancelled Total Bilirubin Cancelled AST Cancelled Alkaline Phosphatase Cancelled Total Protein Cancelled Albumin Cancelled Urine Color YELLOW Urine Appearance CLEAR Urine pH 5.0 Ur Specific Vincent 1.014 Urine Protein NEGATIVE Urine Glucose (UA) NEGATIVE Urine Ketones TRACE H Urine Blood NEGATIVE 01/03/20 07:00 WBC RBC Hgb Hct MCV MCH MCHC RDW Plt Count Seg Neutrophils % Sodium 132.4 L Potassium 4.3 Chloride 98 Carbon Dioxide 25 Anion Gap 9 BUN 35 H Creatinine 0.89 Est GFR ( Amer) > 60 Est GFR (Non-Af Amer) Glucose 113 H Calcium 8.2 L Magnesium 1.7 Total Bilirubin 0.5 AST 69 H Alkaline Phosphatase 86 Total Protein 7.1 Albumin 4.6 Urine Color Urine Appearance Urine pH Ur Specific Vincent Urine Protein Urine Glucose (UA) Urine Ketones Urine Blood 01/03/20 06:05 Troponin I < 0.012 Impressions: Cervical Spine CT 01/03/20 05:24 IMPRESSION: No acute findings. Chest X-Ray 01/03/20 05:24 IMPRESSION: No acute cardiopulmonary findings. Head CT 01/03/20 05:24 IMPRESSION: No acute findings. Qualifiers PATIENT BEING DISCHARGED WITH ANY OF THE FOLLOWING DIAGNOSIS: No Assessment & Plan - Time Time Spent: 30 to 50 Minutes Medications reviewed and adjusted accordingly: Yes Anticipated dischagre: Home Within: within 48 hours - Plan Summary Plan Summary: Patient signed out against medical advise before my physical presence to evaluate her medical condition due to her demand for IV Morphine for her pain management despite her persistent hypotension. Patient will be given 30 days to seek another primary care doctor to take over her medical management due to her noncompliant with my recommendation and insistence of IV morphine with her low blood pressure. She was on Tramadol for chronic pain management until her admission to the hospital. I will provide my service for any medical need within my specialty during this period. She will be sent a register letter on 01/04/2020 to this effect. She will be discharged from my practice and service on 02/03/2020.
== END 2020-01-03 16:07 | disposition left against medical advice (07) ==
LOC: ER 04:12 → INTOOBSV 12:47 → EH 12:47 → 4N 15:03
PROVIDERS: ADMIT Internal Medicine Geriatric Medicine; ATTEND Internal Medicine Geriatric Medicine
DX: I95.1 Orthostatic hypotension (principal); M47.892 Other spondylosis, cervical region; M48.02 Spinal stenosis, cervical region; M50.20 Other cervical disc displacement, unspecified cervical region; M54.6 Pain in thoracic spine; S09.90XA Unspecified injury of head, initial encounter; W18.09XA Striking against other object with subsequent fall, initial encounter; Y92.002 Bathroom of unspecified non-institutional (private) residence as the place of occurrence of the external cause; R79.89 Other specified abnormal findings of blood chemistry; E87.1 Hypo-osmolality and hyponatremia; E83.51 Hypocalcemia; R11.10 Vomiting, unspecified; D72.829 Elevated white blood cell count, unspecified; E27.9 Disorder of adrenal gland, unspecified; E03.9 Hypothyroidism, unspecified; M19.90 Unspecified osteoarthritis, unspecified site; Z79.899 Other long term (current) drug therapy; Z87.820 Personal history of traumatic brain injury; Z98.1 Arthrodesis status; Z82.49 Family history of ischemic heart disease and other diseases of the circulatory system; Z82.3 Family history of stroke; Z91.19 Patient's noncompliance with other medical treatment and regimen; Z87.81 Personal history of (healed) traumatic fracture
CPT/HCPCS: 93005; 99285; 96361; 96374; 96375; 36415; 83735; 85025; 80053; 81001; 84484; 71045; 70450; 72125; 93010; J2270; J2405; J7030

== ENCOUNTER 2020-04-04 04:46 | Emergency (ER) | payer MEDICARE, MEDICAID ==
[2020-04-04] MEDS ORDERED: MORPHINE SULFATE 10 MG/ML INJ IV ONE (05:51)
[2020-04-04] MEDS ORDERED: ONDANSETRON HCL INJ/PF 4 MG/2 ML SDV IV ONE (05:51)
--- NOTE | 2020-04-04 05:54 | ER Document Report ---
ED Medical Screen (RME) - General Chief Complaint: Headache Stated Complaint: MIGRAINE Time Seen by Provider: 04/04/20 05:37 Primary Care Provider: LUANN PINTO MD [Primary Care Provider] - Follow up as needed Notes: 60-year-old female with multiple complaints. First complaint is swelling behind the right knee, she is postop on 03/20/2020 with cervical fusion by Dr. Tilley in an outpatient setting reportedly. She also states that she has pain in her left lower rib on her side and she thinks this was struck while she was transferring in the hospital. She denies particular chest pain, denies shortness of breath, denies fever. She also states that she is getting muscle twitching especially in her face. TRAVEL OUTSIDE OF THE [place] IN LAST 30 DAYS: No - Related Data Allergies/Adverse Reactions: No Known Allergies Allergy (Unverified 01/03/20 06:42) Past Medical History Endocrine Medical History: Reports: Hx Hypothyroidism Renal/ Medical History: Reports: Hx Kidney Stones. Denies: Hx Peritoneal Dialysis GI Medical History: Reports: Hx Gastroesophageal Reflux Disease Musculoskeltal Medical History: Reports Hx Arthritis, Reports Hx Musculoskeletal Deformity, Reports Hx Musculoskeletal Trauma Psychiatric Medical History: Reports: Hx Anxiety, Hx Depression, Hx Post Traumatic Stress Disorder Traumatic Medical History: Reports: Hx Fractures, Hx Spine Fracture, Hx Traumatic Brain Injury Past Surgical History: Reports: Hx Appendectomy, Hx Bowel Surgery - Hx small bowel obstruction and a small large bowel obstruction, Hx Breast Surgery - Breast augmentation/ Breast reduction, Hx Section - Nondistended, Hx Hysterectomy, Hx Orthopedic Surgery - L & R rotator cuff. L & R foot dorsal repair. Lumbar fusion L4-S1 - Immunizations Immunizations up to date: Yes Hx Diphtheria, Pertussis, Tetanus Vaccination: Yes Physical Exam - Vital signs Vitals: Temp Pulse Resp BP Pulse Ox 98.3 F 84 18 150/63 H 100 04/04/20 04:53 04/04/20 04:53 04/04/20 04:53 04/04/20 04:53 04/04/20 04:53 - Respiratory Respiratory status: No respiratory distress. No: Respiratory distress Chest status: Tender - There is mild tenderness in the left lower rib laterally and inferiorly, no noted trauma, unremarkable chest exam otherwise. No: Accessory muscle use Course - Re-evaluation Re-evalutation: I have greeted and performed a rapid initial assessment of this patient. A comprehensive ED assessment and evaluation of the patient, analysis of test results and completion of the medical decision making process will be conducted by additional ED providers. - Vital Signs Vital signs: Temp Pulse Resp BP Pulse Ox 98.3 F 84 18 150/63 H 100 04/04/20 04:53 04/04/20 04:53 04/04/20 04:53 04/04/20 04:53 04/04/20 04:53 Doctor's Discharge - Discharge Referrals: LUANN PINTO MD [Primary Care Provider] - Follow up as needed
--- NOTE | 2020-04-04 06:40 | RADIOLOGY REPORT (SQ) ---
LEFT RIB AND CHEST RADIOGRAPHS: 04/04/2020 5:51 AM CDT HISTORY: 60-year-old patient with left-sided chest pain . TECHNIQUE: AP and oblique images of the left ribs are obtained. AP view of the chest was also obtained. COMPARISON: Chest radiograph dated 01/03/2020. FINDINGS: There are no findings to suggest a pneumothorax. There are no findings to suggest an acute, displaced left-sided rib fracture or subluxation. The cardiomediastinal silhouette is normal in size.No pneumothorax is seen. No acute airspace opacities are seen. No discrete pleural effusion is apparent. IMPRESSION: There are no findings to suggest an acute, displaced fracture or subluxation within the left ribs. No acute airspace opacities are seen.
[2020-04-04 06:47] LABS: ABSOLUTE EOSINOPHILS # (AUTO) 0.2 10^3/uL (0.0-0.6); ABSOLUTE LYMPHOCYTES (AUTO) 2.5 10^3/uL (0.5-4.7); ABSOLUTE MONOCYTES (AUTO) 0.6 10^3/uL (0.1-1.4); ABSOLUTE NEUT (AUTO) 3.3 10^3/uL (1.7-8.2); BASOPHILS % (AUTO) 0.5 % (0-2); EOSINOPHILS % (AUTO) 2.7 % (0-6); HEMATOCRIT 39.8 % (36.0-47.0); HEMOGLOBIN 13.5 g/dL (12.0-15.5); LYMPHOCYTES % (AUTO) 37.7 % (13-45); MEAN CORPUSCULAR HEMOGLOBIN 29.9 pg (27.0-33.4); MEAN CORPUSCULAR VOLUME 88 fl (80-97); MONOCYTES % (AUTO) 9.2 % (3-13); PLATELET COUNT 327 10^3/uL (150-450); RED BLOOD COUNT 4.52 10^6/uL (3.72-5.28); RED CELL DISTRIBUTION WIDTH 12.5 % (11.5-14.0); SEGMENTED NEUTROPHILS % (AUTO) 49.9 % (42-78); TOTAL CELLS COUNTED % (AUTO) 100 %; WHITE BLOOD COUNT 6.7 10^3/uL (4.0-10.5)
--- NOTE | 2020-04-04 06:59 | ER Document Report ---
ED General - General Chief Complaint: Headache Stated Complaint: MIGRAINE Time Seen by Provider: 04/04/20 05:37 Primary Care Provider: LUANN PINTO MD [Primary Care Provider] - Follow up as needed Notes: This is a 60-year-old female with a long history of chronic pain migraine cervicalgia who had a recent C-spine surgery in [place] from Dr. Milan Arthur. She comes in with multiple complaints including ongoing headache which is been present for several months with left facial twitching. Is already being worked up by neurology and her spine surgeon. Is no worse after surgery. Her neck actually feels good. No other neuro deficits. Also complaining of pain in her left lower rib cage reproduced on palpation, and movement which she thinks is due to being rotated on the operating table. She also has some redness and pain on the distal right inner thigh with associated swelling. No numbness no tingling. No fevers no shortness of breath no hemoptysis. Also has run out of tramadol and Valium which she gets from pain management. TRAVEL OUTSIDE OF THE [place] IN LAST 30 DAYS: No - Related Data Allergies/Adverse Reactions: No Known Allergies Allergy (Unverified 01/03/20 06:42) Past Medical History - General Information source: Patient - Social History Smoking Status: Never Smoker Family History: Reviewed & Not Pertinent, Arthritis, CAD, COPD, CVA, Hyperlipidemia, Hypertension, Malignancy Endocrine Medical History: Reports: Hx Hypothyroidism Renal/ Medical History: Reports: Hx Kidney Stones. Denies: Hx Peritoneal Dialysis GI Medical History: Reports: Hx Gastroesophageal Reflux Disease Musculoskeletal Medical History: Reports Hx Arthritis, Reports Hx Musculoskeletal Deformity, Reports Hx Musculoskeletal Trauma Psychiatric Medical History: Reports: Hx Anxiety, Hx Depression, Hx Post Traumatic Stress Disorder Traumatic Medical History: Reports: Hx Fractures, Hx Spine Fracture, Hx Traumatic Brain Injury Past Surgical History: Reports: Hx Appendectomy, Hx Bowel Surgery - Hx small bowel obstruction and a small large bowel obstruction, Hx Breast Surgery - Breast augmentation/ Breast reduction, Hx Section - Nondistended, Hx Hysterectomy, Hx Orthopedic Surgery - L & R rotator cuff. L & R foot dorsal rep air. Lumbar fusion L4-S1 - Immunizations Immunizations up to date: Yes Hx Diphtheria, Pertussis, Tetanus Vaccination: Yes Hx Pneumococcal Vaccination: 05/29/14 Review of Systems - Review of Systems Notes: REVIEW OF SYSTEMS GEN: Denies fever, chills, weight loss ENT: Denies sore throat, nasal discharge, ear pain EYES: Denies blurry vision, eye pain, discharge CV: Denies chest pain, palpitations, edema RESP: Denies cough, shortness of breath, wheezing GI: Denies abdominal pain, nausea, vomiting, diarrhea MSK: Right leg pain and swelling SKIN: Denies rash, skin lesions LYMPH: Denies swollen glands/lymph nodes NEURO: Denies headache, focal weakness or numbness, dizziness PSYCH: Denies depression, suicidal or homicidal ideation PHYSICAL EXAMINATION General: No acute distress, well-nourished Head: Atraumatic, normocephalic ENT: Mouth normal, oropharynx moist, no exudates or tonsillar enlargement Eyes: Conjunctiva normal, pupils equal, lids normal Neck: Postoperative pain and stiffness movement but not guarding CVS: Normal rate, regular rhythm, no murmurs Resp: No resp distress, equal and normal breath sounds bilaterally GI: Nondistended, soft, no tenderness to palpation, no rebound or guarding Ext: Mild tenderness to the right distal thigh above the popliteal area with no deformities redness or fluctuance/tenderness Back: No CVA or midline TTP Skin: No rash, warm Lymphatic: No lymphadeopathy noted Neuro: Awake, alert. Face symmetric. GCS 15. Symmetric normal sensation normal speech. Physical Exam - Vital signs Vitals: Temp Pulse Resp BP Pulse Ox 98.3 F 84 18 150/63 H 100 04/04/20 04:53 04/04/20 04:53 04/04/20 04:53 04/04/20 04:53 04/04/20 04:53 Course - Vital Signs Vital signs: Temp Pulse Resp BP Pulse Ox 98.3 F 84 18 150/63 H 100 04/04/20 04:53 04/04/20 04:53 04/04/20 04:53 04/04/20 04:53 04/04/20 04:53 - Laboratory Result Diagrams: 04/04/20 06:38 04/04/20 06:38 Discharge - Discharge Clinical Impression: Right leg pain Condition: Good Disposition: HOME, SELF-CARE Instructions: Headache ([facility]) Additional Instructions: Your headache can be seen and worked up by your neurologist. Your leg swelling does not reflect a blood clot. Please follow-up with neurology primary care and Dr. Milan Arthur. Referrals: LUANN PINTO MD [Primary Care Provider] - Follow up as needed
[2020-04-04 07:05] LABS: ANION GAP 7 (5-19); BLOOD UREA NITROGEN 13 mg/dL (7-20); CALCIUM 9.3 mg/dL (8.4-10.2); CARBON DIOXIDE 26 mmol/L (22-30); CHLORIDE 107 mmol/L (98-107); GLUCOSE 88 mg/dL (75-110); POTASSIUM 3.9 mmol/L (3.6-5.0)
--- NOTE | 2020-04-04 10:25 | RADIOLOGY REPORT (SQ) ---
EXAM DESCRIPTION: VENOUS UNILATERAL LOWER IMAGES COMPLETED DATE/TIME: 04/04/2020 10:13 am REASON FOR STUDY: right side swelling, post op COMPARISON: None. TECHNIQUE: Dynamic and static hernandez scale and color images acquired of the right leg venous system. S elected spectral images acquired with additional compression and augmentation maneuvers. The contrala teral common femoral vein and saphenofemoral junction were also imaged. Images stored on PACS. LIMITATIONS: None. FINDINGS: COMMON FEMORAL: Normal phasicity, compression and augmentation. No visualized echogenic ma terial on hernandez scale. No defects on color images. FEMORAL: Normal compression and augmentation. No visualized echogenic material on hernandez scale. No defe cts on color images. POPLITEAL: Normal compression, augmentation. No visualized echogenic material on hernandez scale. No defec ts on color images. CALF VESSELS: Normal compression, augmentation. No visualized echogenic material on hernandez scale. No de fects on color images. GSV: Normal compression, augmentation. No visualized echogenic material on hernandez scale. No defects on color images. ANY DEEP VENOUS INSUFFICIENCY: Not evaluated. ANY EVIDENCE OF POPLITEAL CYST: No. OTHER: No other significant finding. CONTRALATERAL COMMON FEMORAL VEIN AND SAPHENOFEMORAL JUNCTION: Normal phasicity, compression and augmentation. No visualized echogenic material on hernandez scale. No de fects on color images. IMPRESSION: NO EVIDENCE OF DVT OR SVT IN THE RIGHT LEG. TECHNICAL DOCUMENTATION: JOB ID: [id number] [employer]- All Rights Reserved Reading location - IP/workstation name: [email or web address]
[2020-04-04 10:30] VITALS: BP 138/73
== END 2020-04-04 10:41 | disposition home or self-care (01) ==
LOC: ER 04:46
DX: M79.89 Other specified soft tissue disorders (principal); G35 Multiple sclerosis; Z99.3 Dependence on wheelchair
CPT/HCPCS: 99284; 96374; 96375; 36415; 85025; 80048; 93971; 71101; J2270; J2405